=== PATIENT | male | born 1960 | race Caucasian/White ===

== ENCOUNTER → 2016-08-13 | Outpatient (CLI) | payer OTHER ==
[~2016-08-13] MED LIST: ACET-1138 PO; ACET-1256 PO; AMLO-110 PO; AMOX875T PO; ASCA500 PO; ASPEC81 PO; ASPI81TA28 PO; CETI10TA10 PO; CETI10TA84 PO; CYAN100T PO; CZR50 PO; FERR1TAB23 PO; FLUT0.15 NAE; GLC5 PO; GLC500 PO; LOSA1TAB38 PO; MELO7.5T5 PO; METF-384 PO; MULT-506 PO; ONDA8TAB6 PO; OXYC1TAB3 PO; OXYSR10 PO; RANI300T2 PO; RIVA1.5T PO; RXC5 PO; SIMV-151 PO; SIMV40TA4 PO; XRL15 PO
[2016-08-13 15:33] LABS: BASO % 0.2 %; BASO ABS # 0.02 K/uL (0-0.2); COMPLETE YES; EOS % 1.2 %; HEMATOCRIT 39.5 % (42-52); IG% 0.2 %; LYMPH % 19.3 %; LYMPH ABS # 2.01 K/uL (1.2-3.4); MEAN CELL VOLUME 98.3 fL (80-100); MEAN CORPUSCULAR HEMOGLOBIN 33.8 pg (25-34); MEAN CORPUSCULAR HGB CONC 34.4 g/dl (32-36); MONO % 7.6 %; NEUT % 71.5 %; PLATELET COUNT 275 K/uL (130-400); RED BLOOD COUNT 4.02 M/uL (4.7-6.1); WHITE BLOOD COUNT 10.43 K/uL (4.8-10.8)
[2016-08-13 16:11] LABS: ALT/SGPT 30 U/L (12-78); AST/SGOT 14 U/L (15-37); BLOOD UREA NITROGEN 26 mg/dl (7-18); BUN/CREATININE RATIO 23.6 (10-20); CALCIUM 9.3 mg/dl (8.5-10.1); CARBON DIOXIDE 30 mmol/L (21-32); CHLORIDE 107 mmol/L (98-107); CHOLESTEROL 124 mg/dl (0-200); GLUCOSE 94 mg/dl (70-99); POTASSIUM 4.4 mmol/L (3.5-5.1); SODIUM 142 mmol/L (136-145)
[2016-08-13 16:14] LABS: CHOLESTEROL/HDL RATIO 2.3; HDL CHOLESTEROL 55 mg/dl; LDL CHOLESTEROL CALCULATED 49 mg/dl; TRIGLYCERIDES 98 mg/dl (0-150); VERY LOW DENSITY LIPOPROT CALC 20 mg/dl
[2016-08-13 17:20] LABS: RATIO 4.9 mcg/mg (0-30.0)
[2016-08-14 07:42] LABS: ESTIMATED AVERAGE GLUCOSE 146 mg/dl; HA1C FLAG Normal (Normal)
== END | disposition home or self-care (01) ==
LOC: C.LAB 14:54
DX: M25.551 Pain in right hip (principal); E11.9 Type 2 diabetes mellitus without complications; E78.5 Hyperlipidemia, unspecified

== ENCOUNTER 2016-09-11 05:30 | Inpatient (IN) | payer OTHER ==
[2016-08-21 08:24] VITALS: BMI 28.0
--- NOTE | 2016-08-21 09:03 | PAT Medication Instructions ---
Service Date Aug 21, 2016. Current Home Medication List Amlodipine (Norvasc), 5 MG PO QAM Ascorbic Acid (Vitamin C), 1 TAB PO BID Aspirin (Aspirin Ec), 81 MG PO QAM Cetirizine (Zyrtec), 10 MG PO QAM Cyanocobalamin (Vitamin B-12), 100 MCG PO BID Ferrous Sulfate (Iron), 1 TAB PO BID Fluticasone Propionate (Nasal) (Flonase Allergy Relief), 2 SPRAY JULIO UD PRN for PRN Glipizide (Glipizide), 5 MG PO BID Losartan Potassium (Cozaar), 100 MG PO QAM Meloxicam (Mobic), 15 MG PO QPM Metformin HCl (Metformin HCl), 1,000 MG PO BID Multivitamin (Multivitamin), 1 TAB PO QAM Ranitidine Hcl (Zantac), 300 MG PO HS Simvastatin (Simvastatin), 40 MG PO HS Medication Instructions For Your Scheduled Surgery Meloxicam (Mobic), 15 MG PO QPM (per surgeon instructions) - Hold the following medications 48 hours prior to surgery: Metformin HCl (Metformin HCl), 1,000 MG PO BID - Hold the following medications the morning of surgery: Multivitamin (Multivitamin), 1 TAB PO QAM Losartan Potassium (Cozaar), 100 MG PO QAM Glipizide (Glipizide), 5 MG PO BID Ferrous Sulfate (Iron), 1 TAB PO BID Cyanocobalamin (Vitamin B-12), 100 MCG PO BID Cetirizine (Zyrtec), 10 MG PO QAM Ascorbic Acid (Vitamin C), 1 TAB PO BID - Take the following medications the morning of surgery with a sip of water: Amlodipine (Norvasc), 5 MG PO QAM Fluticasone Propionate (Nasal) (Flonase Allergy Relief), 2 SPRAY JULIO UD PRN for PRN Aspirin (Aspirin Ec), 81 MG PO QAM (okay to take per surgeon) - Take the following medications as scheduled the night before surgery: Ranitidine Hcl (Zantac), 300 MG PO HS Simvastatin (Simvastatin), 40 MG PO HS Glipizide (Glipizide), 5 MG PO BID Ferrous Sulfate (Iron), 1 TAB PO BID Cyanocobalamin (Vitamin B-12), 100 MCG PO BID Ascorbic Acid (Vitamin C), 1 TAB PO BID Fluticasone Propionate (Nasal) (Flonase Allergy Relief), 2 SPRAY JULIO UD PRN for PRN If you have any questions please call us at [phone] (Antonia Lam PA-C ) or [phone] or [phone]
--- NOTE | 2016-08-21 09:40 | DIAGNOSTIC IMAGING REPORT ---
CHEST PREADMISSION(PA/LAT) CLINICAL HISTORY: PAT preoperative evaluation COMPARISON STUDY: 05/28/2015 FINDINGS: The bones soft tissues and hemidiaphragms are normal. The cardiomediastinal silhouette is normal. The lungs are clear. The pulmonary vasculature is normal. IMPRESSION: Negative chest. Electronically signed by: Aravind Allen M.D. 08/21/2016 9:39 AM Dictated Date/Time: 08/21/2016 9:39 AM
[2016-08-21 09:57] LABS: URINE APPEARANCE CLEAR (CLEAR); URINE BILIRUBIN NEG (NEG); URINE COLOR DK YELLOW; URINE NITRITE NEG (NEG); URINE SPECIFIC GRAVITY 1.024 (1.000-1.030); UROBILINOGEN NEG (NEG)
[2016-08-21 10:00] LABS: PARTIAL THROMBOPLASTIN RATIO 0.9; PROTHROMBIN TIME (PATIENT) 10.8 SECONDS (9.0-12.0)
[2016-08-21 10:04] LABS: MANUAL MICROSCOPIC REQUIRED? NO; REVIEW REQ? NO
--- NOTE | 2016-09-09 14:16 | HISTORY & PHYSICAL EXAMINATION ---
DATE OF ADMISSION: 09/11/2016 CHIEF COMPLAINT: Right hip pain. HISTORY OF PRESENT ILLNESS: The patient is a 55-year-old gentleman with known osteoarthritis about his right hip. 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 He is having a lot of pain and disability with activities of daily living. He has pain with prolonged weightbearing and standing activities. He has difficulty kneeling, bending, or squatting activities. Due to ongoing pain and disability, he now desires to proceed with right total hip arthroplasty. PAST MEDICAL HISTORY: Brachial plexus injury right upper extremity, type 2 diabetes, hypertension, hyperlipidemia and depression. MEDICATIONS: Cetirizine HCL 10 mg daily, iron 325 mg daily, losartan potassium 100 mg daily, vitamin B12 100 mcg daily, glipizide 5 mg twice daily, metformin HCL 1000 mg q. 12 hours, men's multivitamin daily, ranitidine HCL 300 mg daily, aspirin 81 mg daily, simvastatin 40 mg daily, amlodipine besylate 5 mg daily, Meloxicam 15 mg daily, fluticasone proprionate 1 spray each nostril twice daily, vitamin C capsules daily. ALLERGIES: No known drug allergies. SOCIAL HISTORY AND REVIEW OF SYSTEMS: Noncontributory. PHYSICAL EXAMINATION: GENERAL: Well-nourished, well-developed male who appears his stated age. HEAD, EYES, EARS, NOSE, AND THROAT: Normocephalic, atraumatic. Extraocular movements intact. Oropharynx pink and moist. NECK: Supple without adenopathy. LUNGS: Clear to auscultation bilaterally. HEART: Regular rate and rhythm. ABDOMEN: Soft, nontender, nondistended. EXTREMITIES: Right upper extremity is dysfunctional due to his previous brachial plexus injury. The right hip demonstrates limited range of motion. There is limitation of active and passive internal/external rotation with pain at end range. X-RAYS: X-rays were reviewed. He has moderate to severe osteoarthritis about the right hip with significant narrowing of the joint space. There is osteophyte formation about the femoral head. ASSESSMENT: Right hip degenerative joint disease. PLAN: Risks versus benefits were discussed. Consent was obtained. The patient's primary care physician is Dr. Noland. Will proceed with right total hip arthroplasty upon preoperative workup and medical clearance.
[~2016-09-11] VITALS: Ht 180.3 cm; Wt 93.1 kg
[2016-09-11] VITALS (8 sets, daily range): BP systolic 130–155; BP diastolic 72–87; PULSE 55–79; TEMP 36.3–36.9; O2SAT 94–99; Ht 180.3 cm; Wt 93.1 kg
[~2016-09-11 05:30] MED LIST changes: -ACET-1138 PO; -ACET-1256 PO; -AMLO-110 PO; -AMOX875T PO; -ASCA500 PO; -ASPEC81 PO; -CETI10TA10 PO; -CETI10TA84 PO; -CYAN100T PO; -CZR50 PO; -FERR1TAB23 PO; -FLUT0.15 NAE; -GLC5 PO; -GLC500 PO; +LACTATED RINGER'S 1000ML 1,000 ML IV SCH; -LOSA1TAB38 PO; -METF-384 PO; -MULT-506 PO; -ONDA8TAB6 PO; -OXYC1TAB3 PO; -OXYSR10 PO; -RANI300T2 PO; -RIVA1.5T PO; -RXC5 PO; -SIMV40TA4 PO; -XRL15 PO
[2016-09-11] MEDS ORDERED: ACETAMINOPHEN 500 MG TAB PO SCH (06:00)
[2016-09-11] MEDS ORDERED: FAMOTIDINE 20 MG TAB PO SCH (06:00)
[2016-09-11] MEDS ORDERED: CeleBREX 200 MG CAP PO SCH (06:00)
[2016-09-11] MEDS ORDERED: CEFAZOLIN 2000 MG/60 ML D5W 60 ML IV SCH (06:00)
[2016-09-11] MEDS ORDERED: ROPIVACAINE 5MG/ML 30 ML 150 MG, BUPIVACAINE/EPINEPHR 0.5% MPF 30 ML, KETOROLAC TROMETH... INFIL SCH ×7 (06:00)
[2016-09-11] MEDS ORDERED: LACTATED RINGER'S 1000ML 1,000 ML IV SCH (06:00)
[2016-09-11] MEDS ORDERED: DEXAMETHASONE 4 MG TAB PO SCH (06:00)
[2016-09-11] MEDS ORDERED: LACTATED RINGER'S 1000ML IV SCH (06:00)
[2016-09-11] MEDS ORDERED: GABAPENTIN 300 MG CAP PO SCH (06:00)
[2016-09-11] MEDS ORDERED: LACTATED RINGER'S 500 ML IV SCH (06:00)
[2016-09-11] MEDS ORDERED: METOCLOPRAMIDE HCL 10 MG TAB PO SCH (06:00)
[2016-09-11] MEDS ORDERED: BUPIVACAINE 0.5 % 5 MG/1 ML PF 10ML VIAL ONE (06:39)
--- NOTE | 2016-09-11 06:52 | History & Physical Bridge Note ---
H&P Re-Evaluation Bridge Note: I have examined the patient, reviewed the History & Physical and in the interval since the performance of the History & Physical I have noted the following changes of clinical significance: No changes noted
[2016-09-11] MEDS ORDERED: ORTHO JOINT ANESTHETIC ONE (07:03)
[2016-09-11] MEDS ORDERED: BACITRACIN 50000 UNIT VIAL ONE (07:03)
[2016-09-11] MEDS ORDERED: POVIDONE-IODINE OP SOLN 30 ML BTL ONE (07:03)
[2016-09-11] MEDS ORDERED: MIDAZOLAM HCL 1 MG/ML 2ML VIAL ONE ×2 (07:08→07:11)
[2016-09-11] MEDS ORDERED: FENTANYL CITRATE INJ 50 MCG/1 ML 2 ML VIAL ONE (07:08)
[2016-09-11] MEDS: TRANEXAMIC ACID INJ 1,000 MG in SODIUM CHLORIDE 0.9% 100ML 100 ML IV SCH ×2 (07:16→10:23)
[2016-09-11] MEDS ORDERED: EpHEDrine SULFATE INJ 50 MG/ML AMP IV PRN (07:30)
[2016-09-11] MEDS ORDERED: HYDROmorphone INJ 0.5 MG/0.5 ML SYR IV PRN (07:30)
[2016-09-11] MEDS ORDERED: KETOROLAC TROMETHAMINE 30 MG/ML VIAL IV. PRN (07:30)
[2016-09-11] MEDS ORDERED: ATROPINE SULFATE 0.1 MG/ML 5ML SYR IV PRN (07:30)
[2016-09-11] MEDS ORDERED: ONDANSETRON INJ 2 MG/ML 2 ML VIAL IV PRN ×2 (07:30→08:45)
[2016-09-11] MEDS ORDERED: PHENYLEPHRINE 100MCG/ML 5ML SYR IV PRN (07:30)
[2016-09-11] MEDS ORDERED: PROPOFOL IV EMULSION 10 MG/ML 20 ML VIAL IV ONE (07:58)
[2016-09-11] MEDS ORDERED: TAMSULOSIN HCL 0.4 MG CAP PO PRN (08:45)
[2016-09-11] MEDS ORDERED: BISACODYL 10 MG SUPP PR PRN (08:45)
[2016-09-11] MEDS ORDERED: FLUTICASONE PROPIONATE NA SPR 16 GM BTL NAE PRN (08:45)
[2016-09-11] MEDS ORDERED: ALUMINUM/MAGNESIUM/SIMETH (MAALOX MAX) 30 ML UDC PO PRN (08:45)
[2016-09-11] MEDS ORDERED: DiphenhydrAMINE HCL 50 MG/ML VIAL IV PRN (08:45)
[2016-09-11] MEDS ORDERED: MAGNESIUM HYDROXIDE SUSP 30 ML UDC PO PRN (08:45)
[2016-09-11] MEDS ORDERED: MoRPHine SULFATE 2 MG/ML CARP IV PRN ×2 (08:45→11:15)
--- NOTE | 2016-09-11 09:02 | [facility] Post Operative Brief Note ---
Immediate Operative Summary Operative Date Sep 11, 2016. Pre-Operative Diagnosis Right hip degenerative joint disease Post-Operative Diagnosis Right hip degenerative joint disease Procedure(s) Performed Right total hip arthoplasty Surgeon Dr. Varghese Travel Occupational Therapist Surgeon(s) Arik Newton PA-C Estimated Blood Loss 100cc Findings severe OA Specimens A: Right femoral head Complication(s) None Disposition Recovery Room / PACU
--- NOTE | 2016-09-11 09:22 | OPERATIVE REPORT ---
DATE OF OPERATION: 09/11/2016 PREOPERATIVE DIAGNOSIS: Osteoarthritis left hip. POSTOPERATIVE DIAGNOSIS: Osteoarthritis left hip. PROCEDURE: Left connective total hip arthroplasty. SURGEON: Dr. Varghese. COMPUTER SYSTEMS ADMINISTRATOR: Arik Newton PA-C. ANESTHESIA: Spinal. COMPLICATIONS: None. OPERATION AND FINDINGS: PROCEDURE: Following induction of adequate spinal anesthesia, the patient was placed in right lateral decubitus position and left [place] incision was made. Subcutaneous tissue was sharply dissected. Electrocautery used for hemostasis. The fascia was incised throughout the length of the wound and a lord scissor placed beneath the short external rotators. The pyriformis was tagged with #1 Vicryl. The short external rotators were divided from the posterior aspect of the femur using electrocautery. These were swept posteriorly. A T-capsulotomy incision was made and the hip was dislocated using a combination of flexion, adduction, and internal rotation. Exposure of the femoral neck with old-style Hohmann and a blunt Hohmann was carried out and a femoral rasp was utilized as a guide for making the appropriate level femoral neck cut. This bone fragment was removed and reserved on the back table. Next, attention was turned to the acetabulum where bone hook was used to retract the femur while the offset retractors were placed anterior and posteriorly. A double-angled Hohmann was placed in superior and anterior position exposing the acetabulum nicely. Acetabular labrum as well as posterior capsule elements were removed using a long knife and a long pickup. Fovea centralis was cleared of all soft tissue. Sequential reamings were carried up to a size 54 and decision was made to proceed with impaction of a size 54 trabecular metal cup. This was impacted and held using a single 35 mm bone screw. The acetabular liner was placed with 15 of elevated posterior wall in the superior and posterior position. Next, attention was turned to the femoral portion of the case where a Bovie and pickup was used to further clear short external rotators from their insertion on the femur. Box osteotome was used to gain access to the femoral canal and the T-handled rasp and a rattail rasp were used to further open and lateral the canal. Sequentially raspings were carried up to a size 3 which gave good fit and fill of the proximal femur. A trial reduction was carried out and size 3 with increased offset femoral neck component was chosen as the size to be used. A -5 mm femoral head was impacted into position, +0 head was utilized. The trial reduction was stable in all degrees of rotation with no [id number] impingement. The hip was dislocated. The trial components were removed and the final femoral stem, neck, and femoral head combination were assembled on the back table and impacted into position. Hip was relocated. Range of motion checked once again successful and the wound was irrigated. The pyriformis repaired to the greater trochanter using #1 Vicryl [id number] suture. A Hemovac drain was placed and the fascia was closed using #1 Vicryl, subcutaneous tissue was closed using 0 Dexon, and skin was closed with hillary. Sterile dressing of Adaptic, 4 x 4's, ABDs, and foam tape was applied. Recovery room stable. The patient tolerated the procedure well. Due to the complex nature of the procedure, the entire surgery was performed with the operational assistance of Arik Newton PA-C. The marketing communications assistant, under direct supervision, was involved in the actual performance of all aspects of the surgical procedure including hemostasis, tissue retraction and incision, instrument management, patient positioning, and wound closure. I attest to the content of the Intraoperative Record and any orders documented therein. Any exceptio ns are noted below.
--- NOTE | 2016-09-11 09:35 | Anesthesiology Progress Note ---
Anesthesia Post Op Note Date & Time Sep 11, 2016 at 09:35 Vital Signs Pain Intensity: 0 Vital Signs Past 12 Hours Date Time Temp Pulse Resp B/P Pulse Ox O2 Delivery O2 Flow Rate FiO2 09/11/16 09:26 63 16 97 09/11/16 09:26 62 16 09/11/16 09:25 134/78 09/11/16 09:21 62 13 98 09/11/16 09:21 63 13 09/11/16 09:20 64 16 09/11/16 09:20 64 16 131/74 97 09/11/16 09:15 63 16 115/72 92 09/11/16 09:15 62 16 09/11/16 09:10 62 16 09/11/16 09:10 62 16 135/77 98 09/11/16 09:05 63 13 09/11/16 09:05 65 13 134/81 99 09/11/16 09:00 69 20 09/11/16 09:00 36.8 64 20 130/67 96 Nasal Cannula 2 09/11/16 09:00 65 20 130/67 93 09/11/16 06:16 36.4 67 18 144/87 97 Room Air Notes Mental Status: alert / awake / arousable, participated in evaluation Pt Amnestic to Procedure: Yes Nausea / Vomiting: adequately controlled Pain: adequately controlled Airway Patency, RR, SpO2: stable & adequate BP & HR: stable & adequate Hydration State: stable & adequate Anesthetic Complications: no major complications apparent
--- NOTE | 2016-09-11 09:51 | DIAGNOSTIC IMAGING REPORT ---
SINGLE VIEW PELVIS; SINGLE VIEW RIGHT HIP CLINICAL HISTORY: Postoperative examination. FINDINGS: An AP portable view of the hips and lower pelvis with crosstable lateral portable views of the right hip are obtained. A bipolar right hip arthroplasty is in near-anatomic alignment. A single cortical lag screw transfixes the acetabular cup. No acute fracture is seen. Mild arthritic change is noted in the left hip. Sclerotic change is seen in the sacroiliac joints. There are expected postoperative findings overlying the right hip including skin clips, a surgical drain, subcutaneous gas, and soft tissues swelling. Pelvic phleboliths are noted. There is atherosclerotic calcification of the femoral arteries. IMPRESSION: Expected postoperative findings status post right hip arthroplasty. No acute fracture is seen. Electronically signed by: Himanshu Momin M.D. 09/11/2016 9:49 AM Dictated Date/Time: 09/11/2016 9:47 AM
[2016-09-11] MEDS ORDERED: MoRPHine SULFATE 10 MG/ML CARP/VIAL IV PRN (11:15)
[2016-09-11] MEDS: SODIUM CHLORIDE 0.9% 1000ML 1,000 ML IV SCH ×2 (11:19→18:53)
[2016-09-11] MEDS: INSULIN ASPART 100 UNITS/ML 3 ML PEN SC SCH ×3 (12:47→21:42)
--- NOTE | 2016-09-11 13:30 | Medical Consult ---
Consultation Date of Consultation: Sep 11, 2016. Attending Physician: Armando Varghese M.D. Reason for Consultation: Medical Management History of Present Illness Patient is a 55 y.o.M who presented to [facility] for elective Left connective total hip arthroplasty done by Dr. Varghese on 09.11.16. Hospitalist service was consulted for medication management. Pos-op patient complains of minimal hip pain. He denies any SOB, chest pain, nausea , vomiting or fevers. Patient has DMII. He is not on insulin however states he performs his accuchecks 3 times weekly and blood sugars range from 95-105. Family History Patient reports no known family medical history. Social History Smoking Status: Never Smoker Drug Use: other Marital Status: in relationship Housing Status: lives with significant other Occupation Status: employed Allergies Coded Allergies: Fluorouracil (Verified Allergy, Severe, SEVERE RASH, BLISTERS, PAIN, ) WAS GIVEN FOR TREATMENT OF MULTIPLE SKIN LESIONS. Current Inpatient Medications Current Inpatient Medications Medications (Trade) Dose Ordered Sig/Adan Route Start Time Stop Time Status Last Admin Dose Admin Cefazolin Sodium (Ancef 2000mg/60 ml D5W) 60 ml @ 100 mls/hr PREOP IV 09/11/16 06:00 09/11/16 18:00 09/11/16 07:21 100 MLS/HR Acetaminophen (Tylenol Tab) 1,000 mg PREOP PO 09/11/16 06:00 09/11/16 18:00 09/11/16 06:32 1,000 MG Celecoxib (CeleBREX CAP) 200 mg PREOP PO 09/11/16 06:00 09/11/16 18:00 09/11/16 06:32 200 MG Dexamethasone (Decadron Tab) 8 mg PREOP PO 09/11/16 06:00 09/11/16 18:00 09/11/16 06:31 8 MG Famotidine (Pepcid Tab) 20 mg PREOP PO 09/11/16 06:00 09/11/16 18:00 09/11/16 06:31 20 MG Gabapentin (Neurontin Cap) 600 mg PREOP PO 09/11/16 06:00 09/11/16 18:00 09/11/16 06:31 600 MG Metoclopramide HCl 10 mg 10 mg PREOP PO 09/11/16 06:00 09/11/16 18:00 09/11/16 06:31 10 MG Tranexamic Acid 1000 mg/Sodium Chloride 110 ml @ 660 mls/hr TODAY@06,0630 IV 09/11/16 06:00 09/11/16 18:00 09/11/16 07:16 660 MLS/HR Lactated Ringer's (Lr 1000ml) 1,000 ml @ 15 mls/hr Q24H IV 09/11/16 06:00 09/12/16 05:59 09/11/16 06:40 15 MLS/HR Amlodipine Besylate (Norvasc Tab) 5 mg QAM PO 09/12/16 09:00 10/12/16 08:59 Cetirizine HCl (zyrTEC TAB) 10 mg QAM PO 09/12/16 09:00 10/12/16 08:59 Cyanocobalamin (Vitamin B-12 Tab) 100 mcg BID PO 09/12/16 09:00 10/12/16 08:59 Fluticasone Propionate (Flonase Nasal [place]) 2 sprays DAILY PRN JULIO 09/11/16 08:45 10/11/16 08:44 Glipizide (Glucotrol Tab) 5 mg BIDM PO 09/12/16 08:30 10/12/16 08:29 Losartan Potassium (coZAAR TAB) 100 mg QAM PO 09/12/16 09:00 10/12/16 08:59 Multivitamins (Multivitamin Tab) 1 tab QAM PO 09/12/16 09:00 10/12/16 08:59 Ranitidine HCl (zANTac TAB) 300 mg HS PO 09/11/16 21:00 10/11/16 20:59 Simvastatin (Zocor Tab) 40 mg HS PO 09/11/16 21:00 10/11/16 20:59 Ferrous Sulfate (Feosol Tab) 325 mg BIDM PO 09/11/16 17:45 10/11/16 17:44 Insulin Aspart SLIDING SCALE G... ACHS SC 09/11/16 12:00 10/11/16 11:59 09/11/16 12:47 1 UNITS Sodium Chloride (Nss 1000ml) 1,000 ml @ 100 mls/hr Q10H IV 09/11/16 08:38 09/12/16 08:37 09/11/16 11:19 100 MLS/HR Oxycodone HCl (Roxicodone Immediate Rel Tab) 1 TABLET FOR PAIN RATING... Q4H PRN PO 09/11/16 08:45 09/25/16 08:44 Acetaminophen (Tylenol Tab) 1,000 mg Q8 PO 09/11/16 14:00 10/11/16 13:59 Magnesium Hydroxide (Milk Of Magnesia Susp) 30 ml Q6H PRN PO 09/11/16 08:45 10/11/16 08:44 Bisacodyl (Dulcolax Supp) 10 mg DAILY PRN MA 09/11/16 08:45 10/11/16 08:44 Senna (Senokot Tab) 17.2 mg HS PO 09/11/16 21:00 10/11/16 20:59 Diphenhydramine HCl (Benadryl Inj) 25 mg Q8H PRN IV 09/11/16 08:45 10/11/16 08:44 Al Hydrox/Mg Hydrox/Simethicone (Maalox Max Susp) 15 ml Q4H PRN PO 09/11/16 08:45 10/11/16 08:44 Ondansetron HCl (Zofran Inj) 4 mg Q6H PRN IV 09/11/16 08:45 10/11/16 08:44 Tamsulosin HCl 0.4 mg 0.4 mg QAM PRN PO 09/11/16 08:45 10/11/16 08:44 Cefazolin Sodium/ Dextrose (Ancef Iv/D5 50ml) 60 ml @ 100 mls/hr Q8H IV 09/11/16 16:00 09/12/16 00:35 Aspirin (Ecotrin Tab) 81 mg BID PO 09/11/16 21:00 10/11/16 20:59 Docusate Sodium (coLACE CAP) 100 mg BID PO 09/11/16 21:00 10/11/16 20:59 Morphine Sulfate (MoRPHine SULFATE INJ) 2 mg Q4HWA PRN IV 09/11/16 11:15 09/25/16 11:14 Morphine Sulfate (MoRPHine SULFATE INJ) 4 mg Q4HWA PRN IV 09/11/16 11:15 09/25/16 11:14 Morphine Sulfate (MoRPHine SULFATE INJ) 6 mg Q4HWA PRN IV 09/11/16 11:15 09/25/16 11:14 Review of Systems Constitutional: No chills, No fever Eyes: No worsening of vision ENT: No hearing loss Respiratory: No cough Cardiovascular: No chest pain Abdomen: No constipation, No nausea, No pain Musculoskeletal: No joint pain, No swelling Genitourinary - Male: No hematuria Neurologic: No memory loss Psychiatric: No depression symptoms Endocrine: No fatigue Hematologic / Lymphatic: No abnormal bleeding/bruising Integumentary: No itch, No new/changing skin lesions, No rash Physical Exam Date Time Temp Pulse Resp B/P Pulse Ox O2 Delivery O2 Flow Rate FiO2 09/11/16 12:04 36.5 60 18 136/72 99 Nasal Cannula 2.0 09/11/16 11:02 36.5 59 17 142/76 97 Nasal Cannula 2.0 09/11/16 11:00 Nasal Cannula 2.0 09/11/16 10:52 Nasal Cannula 2.0 09/11/16 10:36 36.9 55 17 130/80 94 Nasal Cannula 2.0 09/11/16 10:05 36.3 60 20 130/76 97 Nasal Cannula 2.0 09/11/16 09:52 63 15 97 09/11/16 09:52 63 15 09/11/16 09:50 119/85 09/11/16 09:47 60 12 09/11/16 09:47 60 12 97 09/11/16 09:46 62 16 09/11/16 09:46 62 16 98 09/11/16 09:45 129/75 09/11/16 09:41 36.9 09/11/16 09:41 61 13 98 09/11/16 09:41 61 13 09/11/16 09:40 133/72 09/11/16 09:36 61 15 98 09/11/16 09:36 61 15 09/11/16 09:35 144/81 09/11/16 09:32 72 22 98 09/11/16 09:32 64 22 09/11/16 09:30 129/72 09/11/16 09:27 61 16 97 09/11/16 09:27 60 16 09/11/16 09:26 63 16 97 09/11/16 09:26 62 16 09/11/16 09:25 134/78 09/11/16 09:21 62 13 98 09/11/16 09:21 63 13 09/11/16 09:20 64 16 09/11/16 09:20 64 16 131/74 97 09/11/16 09:15 63 16 115/72 92 09/11/16 09:15 62 16 09/11/16 09:10 62 16 09/11/16 09:10 62 16 135/77 98 09/11/16 09:05 63 13 09/11/16 09:05 65 13 134/81 99 09/11/16 09:00 69 20 09/11/16 09:00 36.8 64 20 130/67 96 Nasal Cannula 2 09/11/16 09:00 65 20 130/67 93 09/11/16 06:16 36.4 67 18 144/87 97 Room Air General Appearance: WD/WN, no apparent distress Head: normocephalic Eyes: normal inspection ENT: normal ENT inspection Neck: supple Respiratory/Chest: chest non-tender, lungs clear Cardiovascular: regular rate, rhythm, no edema Abdomen/GI: normal bowel sounds, non tender, soft Back: normal inspection Extremities/Musculoskelatal: normal inspection Laboratory Results Last 24 Hours Test 09/11/16 06:27 09/11/16 09:14 09/11/16 12:02 Bedside Glucose 96 mg/dl 159 mg/dl 169 mg/dl Assessment & Plan Patient is a 55 y.o.M who presented to [facility] for elective Left connective total hip arthroplasty done by Dr. Varghese on 09.11.16. Hospitalist service was consulted for medication management. POD#0 s/p Left total hip arthroplasty - pain control - PT/OT - check CBC in am DMII - controlled - SSI + home dose of glipizide - diabetic diet HTN - controlled - continue home dose of losartan and norvasc GERD - continue ranitidine HLD - continue simvastatin Thank you for the consult and we will follow
[2016-09-11] MEDS: ACETAMINOPHEN 500 MG TAB PO SCH ×2 (13:51→21:39)
[2016-09-11] MEDS: OXYCODONE HCL IR 5 MG TAB (IMMEDIATE RELEASE) PO PRN ×3 (13:52→23:41)
[2016-09-11] MEDS: CEFAZOLIN IV 2,000 MG in DEXTROSE 5% 50ML 50 ML IV SCH ×2 (16:13→23:42)
[2016-09-11] MEDS: MoRPHine SULFATE 4 MG/ML 1 ML CARP\\VIAL IV PRN (16:13)
[2016-09-11] MEDS: FERROUS SULFATE 325 MG TAB PO SCH (18:53)
[2016-09-11] MEDS: DOCUSATE SODIUM 100 MG CAP PO SCH (21:35)
[2016-09-11] MEDS: SENNA 8.6 MG TAB PO SCH (21:37)
[2016-09-11] MEDS: ASPIRIN 81 MG ECTAB PO SCH (21:37)
[2016-09-11] MEDS: SIMVASTATIN 40 MG TAB PO SCH (21:39)
[2016-09-11] MEDS: RANITIDINE HCL 150 MG TAB PO SCH (21:40)
[2016-09-12] VITALS (9 sets, daily range): BP systolic 138–180; BP diastolic 76–83; PULSE 63–77; TEMP 36.4–36.7; O2SAT 95–100
[2016-09-12] MEDS: SODIUM CHLORIDE 0.9% 1000ML 1,000 ML IV SCH (04:00)
[2016-09-12] MEDS: OXYCODONE HCL IR 5 MG TAB (IMMEDIATE RELEASE) PO PRN ×4 (05:31→21:17)
[2016-09-12] MEDS: ACETAMINOPHEN 500 MG TAB PO SCH ×3 (05:32→21:12)
[2016-09-12 06:02] LABS: COMPLETE YES; HEMATOCRIT 33.7 % (42-52); IG% 0.4 %; LYMPH % 7.9 %; MEAN CELL VOLUME 98.5 fL (80-100); MEAN CORPUSCULAR HEMOGLOBIN 34.2 pg (25-34); MEAN CORPUSCULAR HGB CONC 34.7 g/dl (32-36); MEAN PLATELET VOLUME 10.3 fL (7.4-10.4); MONO % 9.9 %; NEUT % 81.8 %; PLATELET COUNT 237 K/uL (130-400); RED BLOOD COUNT 3.42 M/uL (4.7-6.1); WHITE BLOOD COUNT 13.86 K/uL (4.8-10.8)
[2016-09-12 06:56] LABS: BUN/CREATININE RATIO 18.7 (10-20); CALCIUM 7.7 mg/dl (8.5-10.1); CREATININE 0.93 mg/dl (0.60-1.40); POTASSIUM 3.8 mmol/L (3.5-5.1)
--- NOTE | 2016-09-12 07:51 | Orthopedic Progress Note ---
Orthopedic Progress Note Date of Service Sep 12, 2016. Subjective Post OP Day: 1 Reports: complaints (general soreness of the right knee and thigh), feeling well , Denies: SOB, calf pain, chest pain, light headedness, nausea / vomiting Objective calves soft nontender, N/V intact, hip located, dressing C/D/I, A&O x3, toes mobile Date Time Temp Pulse Resp B/P Pulse Ox O2 Delivery O2 Flow Rate FiO2 09/12/16 07:43 36.7 63 18 147/78 100 Room Air 09/12/16 04:05 36.6 77 18 149/80 98 Room Air 09/11/16 23:45 Room Air 09/11/16 23:15 36.6 71 16 147/80 97 Room Air 09/11/16 20:12 36.5 79 18 148/84 98 Room Air 09/11/16 15:45 36.5 70 17 155/87 96 Nasal Cannula 2.0 09/11/16 15:40 Room Air 09/11/16 12:04 36.5 60 18 136/72 99 Nasal Cannula 2.0 09/11/16 11:02 36.5 59 17 142/76 97 Nasal Cannula 2.0 09/11/16 11:00 Nasal Cannula 2.0 09/11/16 10:52 Nasal Cannula 2.0 09/11/16 10:36 36.9 55 17 130/80 94 Nasal Cannula 2.0 09/11/16 10:05 36.3 60 20 130/76 97 Nasal Cannula 2.0 09/11/16 09:52 63 15 97 09/11/16 09:52 63 15 09/11/16 09:50 119/85 09/11/16 09:47 60 12 09/11/16 09:47 60 12 97 09/11/16 09:46 62 16 09/11/16 09:46 62 16 98 09/11/16 09:45 129/75 09/11/16 09:41 36.9 09/11/16 09:41 61 13 98 09/11/16 09:41 61 13 09/11/16 09:40 133/72 09/11/16 09:36 61 15 98 09/11/16 09:36 61 15 09/11/16 09:35 144/81 09/11/16 09:32 72 22 98 09/11/16 09:32 64 22 09/11/16 09:30 129/72 09/11/16 09:27 61 16 97 09/11/16 09:27 60 16 09/11/16 09:26 63 16 97 09/11/16 09:26 62 16 09/11/16 09:25 134/78 09/11/16 09:21 62 13 98 09/11/16 09:21 63 13 09/11/16 09:20 64 16 09/11/16 09:20 64 16 131/74 97 09/11/16 09:15 63 16 115/72 92 09/11/16 09:15 62 16 09/11/16 09:10 62 16 09/11/16 09:10 62 16 135/77 98 09/11/16 09:05 63 13 09/11/16 09:05 65 13 134/81 99 09/11/16 09:00 69 20 09/11/16 09:00 36.8 64 20 130/67 96 Nasal Cannula 2 09/11/16 09:00 65 20 130/67 93 Laboratory Results 24 Hours: Test 09/12/16 05:28 White Blood Count 13.86 K/uL Red Blood Count 3.42 M/uL Hemoglobin 11.7 g/dL Hematocrit 33.7 % Mean Corpuscular Volume 98.5 fL Mean Corpuscular Hemoglobin 34.2 pg Mean Corpuscular Hemoglobin Concent 34.7 g/dl Platelet Count 237 K/uL Mean Platelet Volume 10.3 fL Neutrophils (%) (Auto) 81.8 % Lymphocytes (%) (Auto) 7.9 % Monocytes (%) (Auto) 9.9 % Eosinophils (%) (Auto) 0.0 % Basophils (%) (Auto) 0.0 % Neutrophils # (Auto) 11.34 K/uL Lymphocytes # (Auto) 1.10 K/uL Monocytes # (Auto) 1.37 K/uL Eosinophils # (Auto) 0.00 K/uL Basophils # (Auto) 0.00 K/uL Assessment & Plan Assessment: POD 1 s/p Right CHACHO Plan: PT/OT Planning on [facility] upon dc Inhouse Planning Pain Management: Morphine, PO Tylenol, Oxy IR DVT Prophylaxis: TEDs, SCDs, ASA Discharge Planning Discharge Planning: home with home health Pain Management: PO Tylenol, Oxy IR DVT Prophylaxis: TEDs, ASA Therapy: Physical Therapy
--- NOTE | 2016-09-12 08:00 | Discharge Instructions ---
Discharge Instructions Date of Service Sep 12, 2016. Admission Reason for Admission: Right Hip Osteoarthritis Discharge Discharge Diagnosis / Problem: Right Hip Djd Discharge Goals Goal(s): Decrease discomfort, Improve function Activity Recommendations Activity Limitations: per Instructions/Follow-up section Weightbearing Status: Right weightbearing (as tolerated) . Instructions / Follow-Up Instructions / Follow-Up ACTIVITY RECOMMENDATIONS: SELF CARE INSTRUCTIONS AFTER TOTAL HIP REPLACEMENT Until the incision and soft tissues around your hip have healed, there is a possibility that the hip prosthesis could dislocate. A. Observe the following precautions to prevent dislocation: 1. Don't bend your hip greater than 90 degrees. 2. Avoid crossing your legs or ankles while standing or lying. 3. Sit with your feet placed 6 inches apart. 4. When sitting, keep your knees below your hips. Sit on a firm surface, avoid deep, soft chairs and couches. Use an elevated toilet seat in the bathroom. 5. Don't bend over at the waist. Use a long handled shoehorn and a sock aid to help you put on your shoes and socks. A remote sensing scientist can help you picker machine operator objects that are too high or too low to reach. 6. Keep car riding to a minimum for at least one month after surgery. B. Your balance may be shaky for a while. Use crutches or a walker until directed by your doctor. C. Use hand rails when walking on stairs. D. Wear low heeled shoes with non-slip soles. E. Be sure that your floors are free of things that could trip you - throw rugs , electrical cords, small objects. Avoid wet and waxed floors, especially with crutches and canes. F. Try to walk several times a day with rest periods between. G. Continue with all the exercises taught to you in the hospital. Again, make walking a part of your daily routine. SPECIAL CARE INSTRUCTIONS: VERY IMPORTANT TO READ AND REVIEW A. You may still be at risk for phlebitis and blood clots. 1. Wear surgical stockings (SONNY hose) for 2 weeks after surgery to improve circulation and reduce swelling. 2. Take Aspirin 81mg twice daily for 4 weeks or as directed by your doctor. This is your blood thinner. 3. High risk patients may be prescribed a stronger blood thinner if necessary. 4. If you are on Coumadin normally, your family doctor/presidential support specialist should monitor your blood work. Expect a phone call the day of or the day after bloodwork is drawn to adjust your dosage. B. You must take antibiotics before having dental work, bladder, bowel and other surgery. Your doctor will provide you with a permanent card to carry describing precautions. C. Call [facility] if you have a fever, redness or swelling around the incision, cloudy drainage from incision, or sudden increase in pain in your hip, not relieved by your regular pain medication. D. Please call the office at if you have any concerns or questions about your operation or recovery. * YOU MAY SHOWER, NO TUB BATHS UNTIL CLEARED BY YOUR DOCTOR. * WEAR SONNY HOSE 20 HOURS PER DAY FOR 2 WEEKS. * YOU SHOULD USE A WALKER OR CRUTCHES FOR 2-4 WEEKS. THIS WILL HELP PREVENT STRAIN ON YOUR HIP MUSCLE AND ALLOW IT TO HEAL PROPERLY. YOU MAY WEAN TO A CANE TOLERATED. * MOST PATIENTS WILL HAVE HOME NURSING FOR THERAPY. IF YOU DECIDE TO DO OUTPATIENT PHYSICAL THERAPY, PLEASE SCHEDULE THIS 3 TIMES PER WEEK. * Silverlon- This is a large adhesive bandage that contains silver ions. This helps your incision heal by fighting off bacteria and protecting it from the outside environment. You are permitted to shower with this dressing. This will remain on your incision for 7 days and then should be removed. Some visible blood or drainage through the dressing window is normal. If there is significant drainage or leaking noted before the 7 days notify your doctor's office immediately. Once removed, keep incision clean and dry. If there is any drainage or redness noted, please call your surgeon. . FOLLOW UP VISIT: If appointment is not already scheduled: Please call [facility] to make a follow-up appointment for 2 weeks after your surgery at . Current Hospital Diet Patient's current hospital diet: Diabetes Type 2 Diet Discharge Diet Recommended Diet: Diabetes Type 2 Diet Procedures Procedures Performed: Right total hip arthoplasty Pending Studies Studies pending at discharge: no Laboratory Results Hemoglobin A1c Test 08/13/16 15:04 Range/Units Estimated Average Glucose 146 mg/dl Hemoglobin A1c 6.7 H 4.5-5.6 % Lipid Panel Test 08/13/16 15:04 Range/Units Triglycerides Level 98 0-150 mg/dl Cholesterol Level 124 0-200 mg/dl HDL Cholesterol 55 mg/dl Cholesterol/HDL Ratio 2.3 LDL Cholesterol, Calculated 49 mg/dl Medical Emergencies . Who to Call and When: Medical Emergencies: If at any time you feel your situation is an emergency, please call 911 immediately. . Non-Emergent Contact Non-Emergency issues call your: Surgeon Call Non-Emergent contact if: temperature is above 101.5, your pain is not controlled, your pain is worsening, wound has increased drainage, wound has increased redness . "Provider Documentation" section prepared by Arik Newton. VTE Core Measure Inpt VTE Proph given/why not?: Other Anticoagulation, T.E.D. Stockings, SCD's [place] Drug Monitoring Program Search Results: patient reviewed within database, no issues identified
--- NOTE | 2016-09-12 08:25 | Anesthesiology Progress Note ---
Anesthesia Post Op Note Date & Time Sep 12, 2016 at 08:24 Vital Signs Pain Intensity: 2.0 Vital Signs Past 12 Hours Date Time Temp Pulse Resp B/P Pulse Ox O2 Delivery O2 Flow Rate FiO2 09/12/16 08:15 Room Air 09/12/16 07:43 36.7 63 18 147/78 100 Room Air 09/12/16 04:05 36.6 77 18 149/80 98 Room Air 09/11/16 23:45 Room Air 09/11/16 23:15 36.6 71 16 147/80 97 Room Air Notes Mental Status: alert / awake / arousable, participated in evaluation Anesthetic Complications: no major complications apparent
[2016-09-12] MEDS: FERROUS SULFATE 325 MG TAB PO SCH ×2 (08:41→17:56)
[2016-09-12] MEDS: DOCUSATE SODIUM 100 MG CAP PO SCH ×2 (08:42→21:11)
[2016-09-12] MEDS: ASPIRIN 81 MG ECTAB PO SCH ×2 (08:43→21:11)
[2016-09-12] MEDS: MULTIVITAMIN TAB PO SCH (08:43)
[2016-09-12] MEDS: LOSARTAN POTASSIUM 50 MG TAB PO SCH (08:43)
[2016-09-12] MEDS: AMLODIPINE BESYLATE 5 MG TAB PO SCH (08:44)
[2016-09-12] MEDS: CYANOCOBALAMIN 100 MCG TAB (VIT B-12) PO SCH ×2 (08:45→21:10)
[2016-09-12] MEDS: CETIRIZINE HCL 10 MG TAB PO SCH (08:45)
[2016-09-12] MEDS: INSULIN ASPART 100 UNITS/ML 3 ML PEN SC SCH ×4 (08:48→21:10)
[2016-09-12] MEDS ORDERED: DOCUSATE SODIUM 100 MG CAP PO SCH (09:00)
[2016-09-12] MEDS: MoRPHine SULFATE 4 MG/ML 1 ML CARP\\VIAL IV PRN ×3 (12:53→22:12)
--- NOTE | 2016-09-12 16:09 | Hospitalist Progress Note ---
Hospitalist Progress Note Date of Service Sep 12, 2016. Subjective Pt evaluation today including: conversation w/ patient Patient had no acute issues overnight Constitutional: No fever Eyes: No worsening of vision ENT: No hearing loss Respiratory: No cough, No shortness of breath Cardiovascular: No chest pain Abdomen: No constipation, No pain, No vomiting Musculoskeletal: No joint pain Male : No dysuria, No incontinence Neurologic: No memory loss Psychiatric: No depression symptoms Heme: No abnormal bleeding/bruising Endo: No fatigue Skin: No rash Objective Vital Signs Date Time Temp Pulse Resp B/P Pulse Ox O2 Delivery O2 Flow Rate FiO2 09/12/16 15:33 36.7 64 16 173/78 100 Room Air 09/12/16 13:51 69 153/80 09/12/16 12:17 177/82 09/12/16 11:47 36.4 65 17 180/83 95 Room Air 09/12/16 08:15 Room Air 09/12/16 07:43 36.7 63 18 147/78 100 Room Air 09/12/16 04:05 36.6 77 18 149/80 98 Room Air 09/11/16 23:45 Room Air 09/11/16 23:15 36.6 71 16 147/80 97 Room Air 09/11/16 20:12 36.5 79 18 148/84 98 Room Air Physical Exam General Appearance: WD/WN, no apparent distress Eyes: normal inspection ENT: normal ENT inspection Neck: supple, no adenopathy Respiratory/Chest: chest non-tender, lungs clear Cardiovascular: regular rate, rhythm, no edema Abdomen: normal bowel sounds, non tender, soft Extremities: normal range of motion, non-tender Neurologic/Psychiatric: tower switch operator II-XII nml as tested, no motor/sensory deficits, alert, oriented x 3 Skin: normal color, warm/dry, no rash Lymphatic: no adenopathy Laboratory Results Last 24 Hours Test 09/11/16 17:14 09/11/16 21:05 09/12/16 05:28 09/12/16 08:03 Bedside Glucose 196 mg/dl 222 mg/dl 156 mg/dl White Blood Count 13.86 K/uL Red Blood Count 3.42 M/uL Hemoglobin 11.7 g/dL Hematocrit 33.7 % Mean Corpuscular Volume 98.5 fL Mean Corpuscular Hemoglobin 34.2 pg Mean Corpuscular Hemoglobin Concent 34.7 g/dl Platelet Count 237 K/uL Mean Platelet Volume 10.3 fL Neutrophils (%) (Auto) 81.8 % Lymphocytes (%) (Auto) 7.9 % Monocytes (%) (Auto) 9.9 % Eosinophils (%) (Auto) 0.0 % Basophils (%) (Auto) 0.0 % Neutrophils # (Auto) 11.34 K/uL Lymphocytes # (Auto) 1.10 K/uL Monocytes # (Auto) 1.37 K/uL Eosinophils # (Auto) 0.00 K/uL Basophils # (Auto) 0.00 K/uL RDW Standard Deviation 50.3 fL RDW Coefficient of Variation 14.1 % Immature Granulocyte % (Auto) 0.4 % Immature Granulocyte # (Auto) 0.05 K/uL Sodium Level 138 mmol/L Potassium Level 3.8 mmol/L Chloride Level 104 mmol/L Carbon Dioxide Level 24 mmol/L Anion Gap 10.0 mmol/L Blood Urea Nitrogen 17 mg/dl Creatinine 0.93 mg/dl Est Creatinine Clear Calc Drug Dose 102.1 ml/min Estimated GFR () 105.2 Estimated GFR (Non- 90.8 BUN/Creatinine Ratio 18.7 Random Glucose 170 mg/dl Calcium Level 7.7 mg/dl Hepatitis C Antibody Screen NEG Test 09/12/16 12:10 Bedside Glucose 161 mg/dl Assessment and Plan Patient is a 55 y.o.M who presented to [facility] for elective Left connective total hip arthroplasty done by Dr. Varghese on 09.11.16. Hospitalist service was consulted for medication management. POD#1 s/p Left total hip arthroplasty - pain control - PT/OT DMII - controlled - SSI + home dose of glipizide - diabetic diet HTN - controlled - continue home dose of losartan and norvasc GERD - continue ranitidine HLD - continue simvastatin Anticipate d/c in the morning
[2016-09-12] MEDS: SENNA 8.6 MG TAB PO SCH (21:00)
[2016-09-12] MEDS: RANITIDINE HCL 150 MG TAB PO SCH (21:11)
[2016-09-12] MEDS: SIMVASTATIN 40 MG TAB PO SCH (21:11)
[2016-09-13] MEDS: OXYCODONE HCL IR 5 MG TAB (IMMEDIATE RELEASE) PO PRN ×2 (05:35→09:33)
[2016-09-13] MEDS: ACETAMINOPHEN 500 MG TAB PO SCH (05:36)
[2016-09-13 07:04] VITALS: BP 134/76; PULSE 67; TEMP 36.5; O2SAT 98
[2016-09-13] MEDS: INSULIN ASPART 100 UNITS/ML 3 ML PEN SC SCH (07:16)
[2016-09-13] MEDS: CETIRIZINE HCL 10 MG TAB PO SCH (07:34)
[2016-09-13] MEDS: LOSARTAN POTASSIUM 50 MG TAB PO SCH (07:34)
[2016-09-13] MEDS: ASPIRIN 81 MG ECTAB PO SCH (07:34)
[2016-09-13] MEDS: MULTIVITAMIN TAB PO SCH (07:34)
[2016-09-13] MEDS: DOCUSATE SODIUM 100 MG CAP PO SCH (07:34)
[2016-09-13] MEDS: CYANOCOBALAMIN 100 MCG TAB (VIT B-12) PO SCH (07:35)
[2016-09-13] MEDS: FERROUS SULFATE 325 MG TAB PO SCH (07:35)
[2016-09-13] MEDS: AMLODIPINE BESYLATE 5 MG TAB PO SCH (07:35)
--- NOTE | 2016-09-13 09:57 | Orthopedic Progress Note ---
Orthopedic Progress Note Date of Service Sep 13, 2016. Subjective Post OP Day: 2 Reports: feeling well, pain controlled w PO medications, Denies: SOB, calf pain , chest pain, light headedness, nausea / vomiting Objective calves soft nontender, N/V intact, capillary refill less than 2 sec., dressing C /D/I, A&O x3, toes mobile Date Time Temp Pulse Resp B/P Pulse Ox O2 Delivery O2 Flow Rate FiO2 09/13/16 07:13 Room Air 09/13/16 07:04 36.5 67 18 134/76 98 Room Air 09/12/16 23:10 Room Air 09/12/16 23:05 36.6 67 18 138/76 98 CPAP 09/12/16 22:37 158/78 09/12/16 22:19 160/79 09/12/16 16:00 Room Air 09/12/16 15:33 36.7 64 16 173/78 100 Room Air 09/12/16 13:51 69 153/80 09/12/16 12:17 177/82 09/12/16 11:47 36.4 65 17 180/83 95 Room Air Assessment & Plan Assessment: POD 2 s/p Right CHACHO Plan: PT/OT Planning on [facility] upon dc DC today Inhouse Planning Pain Management: Oxycontin, PO Tylenol, Oxy IR DVT Prophylaxis: TEDs, SCDs, ASA Discharge Planning Discharge Planning: home with home health Pain Management: Oxycontin, PO Tylenol, Oxy IR DVT Prophylaxis: TEDs, ASA Therapy: Physical Therapy
[2016-09-13] MEDS ORDERED: ASPEC81 PO (10:01)
[2016-09-13] MEDS ORDERED: ONDA8TAB6 PO (10:01)
[2016-09-13] MEDS ORDERED: ACET-1138 PO (10:01)
[2016-09-13] MEDS ORDERED: RXC5 PO (10:01)
[2016-09-13 10:09] VITALS: BP 134/76; PULSE 67; TEMP 36.5; O2SAT 98
--- NOTE | 2016-09-16 13:40 | DISCHARGE SUMMARY ---
DISCHARGE DIAGNOSIS: Degenerative joint disease, right hip. SECONDARY DIAGNOSES: Brachial plexus injury, right upper extremity; type 2 diabetes mellitus; hypertension; hyperlipidemia and depression. CONSULTS: Carla Holland MD COMPLICATIONS: None. PROCEDURES: Right total hip arthroplasty performed by Dr. Varghese on 09/11/2016. BRIEF HISTORY: As dictated in history and physical. HOSPITAL SUMMARY: The patient was admitted on the above date and had the above-noted surgery performed, which he tolerated well. On the first postoperative day, the patient was having some general soreness of the right knee and thigh. He was otherwise feeling well and had no other complaints. Calves were soft and nontender. Neurovascularly intact. Hip was located. Dressings clean, dry and intact. Toes were mobile. Vital signs were stable and he was afebrile and was started on physical therapy protocol and continued on DVT prophylaxis and pain management. Hemoglobin was 11.7. Plans were for him to go home with home health PT upon discharge. By his second postoperative day, he was feeling well and pain was controlled. Calves were soft, nontender, and neurovascularly intact. Dressings clean, dry and intact. Toes were mobile. Vital signs were stable. He was afebrile. He was progressing with his physical therapy and remaining medically stable and it was felt that he was stable for discharge to home. For further review, please see chart. LAB AND X-RAY DATA: As per chart. DISCHARGE INSTRUCTIONS: The patient was discharged to home in satisfactory condition on 09/13/2016. DIET: Diabetic. ACTIVITY: Weightbearing as tolerated, right lower extremity. Follow CHACHO instruction sheets and special care instructions as noted. Follow up with Dr. Varghese in 2 weeks. The patient is to call for an appointment if one has not been made for you. DISCHARGE MEDICATIONS: Acetaminophen 1000 mg p.o. q. 8 hours for 30 days, aspirin 81 mg p.o. b.i.d., Zofran 8 mg p.o. q. 8 hours p.r.n. nausea, and oxycodone 5-10 mg p.o. q. 4 hours p.r.n. Resume home meds as listed, but stop meloxicam once you are done taking your aspirin tablet twice daily for 30 days, stop the b.i.d. dosing and resume your once daily dosing.
--- NOTE | 2016-09-21 14:46 | EDITING REQUIRED CODING QUERY ---
CODING QUERY Dear Dr. Varghese, To promote full compliance with coding requirements relating to patient care, provider participation is requested in all cases of culinary director uncertainty. Please assist us with the question(s) below: In responding to this query, please exercise your independent professional judgement. The fact that a question is asked does not imply that any particular answer is desired or expected. We appreciate your clarification on this issue. ? Coding Question(s): Contradictory information regarding Procedure - ( ) Right Total Hip Arthroplasty ( ) Left Total Hip Arthroplasty Medical documentation Operative Report DICTATED BY: Armando Varghese M.D. DATE OF OPERATION: 09/11/2016 PREOPERATIVE DIAGNOSIS: Osteoarthritis left hip. POSTOPERATIVE DIAGNOSIS: Osteoarthritis left hip. DISCHARGE SUMMARY: PROCEDURES: Right total hip arthroplasty performed by Dr. Varghese on 09/11/2016. Physician's Response(s): Thank you for your time. YUKI Stokes Principal Diagnosis: "_that condition established after study, to be chiefly responsible for occasioning the admission of the patient to the hospital for care." Co-Existing Principal Diagnosis: "_when two or more diagnoses equally meet the criteria for principal diagnosis as determined by the circumstances of admission, diagnostic work up, and/or therapy provided, and the Alphabetic Index, Tabular List, or another coding guideline does not provide sequencing direction, any one of the diagnoses may be sequenced first." "When the physician has documented what appears to be a current diagnosis in the body of the record, but has not included the diagnosis in the final diagnostic statement, the physician should be asked whether the diagnosis should be added." (Source Coding [facility] 2 QTR90. p3-4)
[2016-12-30] MEDS ORDERED: LOSA1TAB38 PO (08:22)
[2016-12-30] MEDS ORDERED: MULT-506 PO (08:22)
[2016-12-30] MEDS ORDERED: GLC5 PO (08:22)
[2016-12-30] MEDS ORDERED: AMLO-110 PO (08:22)
[2016-12-30] MEDS ORDERED: CETI10TA84 PO (08:22)
[2016-12-30] MEDS ORDERED: FERR1TAB23 PO (08:22)
[2016-12-30] MEDS ORDERED: CYAN100T PO (08:22)
[2016-12-30] MEDS ORDERED: ASCA500 PO (08:22)
[2016-12-30] MEDS ORDERED: RANI300T2 PO (08:22)
[2016-12-30] MEDS ORDERED: GLC500 PO (08:22)
[2016-12-30] MEDS ORDERED: FLUT0.15 NAE (08:22)
[2016-12-30] MEDS ORDERED: ASPI81TA28 PO (16:52)
[2016-12-30] MEDS ORDERED: ACET-1256 PO (16:54)
== END 2016-09-13 10:34 | disposition home health service (06) | DRG 470 ==
LOC: ENRESERVDT → ENRESERVTM → C.ACU 05:30 → C.3E 06:35
PROC: 0SR90JZ Replacement of Right Hip Joint with Synthetic Substitute, Open Approach (ICD-10-PCS; principal; 2016-09-11 07:30)
DX: M16.11 Unilateral primary osteoarthritis, right hip (principal); E78.5 Hyperlipidemia, unspecified; E11.9 Type 2 diabetes mellitus without complications; I10 Essential (primary) hypertension; K21.9 Gastro-esophageal reflux disease without esophagitis; F32.9 Major depressive disorder, single episode, unspecified; Z79.82 Long term (current) use of aspirin; Z79.84 Long term (current) use of oral hypoglycemic drugs; Z79.1 Long term (current) use of non-steroidal anti-inflammatories (NSAID); Z79.51 Long term (current) use of inhaled steroids; Z79.899 Other long term (current) drug therapy

== ENCOUNTER → 2016-09-30 | Outpatient (CLI) | payer OTHER ==
[~2016-09-30] MED LIST changes: +ACET-1138 PO; +ACET-1256 PO; +AMLO-110 PO; +AMOX875T PO; +ASCA500 PO; +ASPEC81 PO; +CETI10TA84 PO; +CYAN100T PO; +FERR1TAB23 PO; +FLUT0.15 NAE; +GLC5 PO; +GLC500 PO; -LACTATED RINGER'S 1000ML 1,000 ML IV SCH; +LOSA1TAB38 PO; -MELO7.5T5 PO; +MULT-506 PO; +ONDA8TAB6 PO; +OXYC1TAB3 PO; +OXYSR10 PO; +RANI300T2 PO; +RIVA1.5T PO; +RXC5 PO; +SIMV40TA4 PO; +XRL15 PO
[2016-09-30 16:41] LABS: BASO % 0.3 %; BASO ABS # 0.03 K/uL (0-0.2); COMPLETE YES; EOS % 1.1 %; HEMATOCRIT 34.7 % (42-52); IG% 0.2 %; LYMPH % 20.8 %; LYMPH ABS # 1.84 K/uL (1.2-3.4); MEAN CELL VOLUME 105.2 fL (80-100); MEAN CORPUSCULAR HEMOGLOBIN 34.5 pg (25-34); MEAN CORPUSCULAR HGB CONC 32.9 g/dl (32-36); MEAN PLATELET VOLUME 9.9 fL (7.4-10.4); MONO % 8.5 %; NEUT % 69.1 %; PLATELET COUNT 396 K/uL (130-400); WHITE BLOOD COUNT 8.83 K/uL (4.8-10.8)
[2016-09-30 16:48] LABS: URINE APPEARANCE CLEAR (CLEAR); URINE BILIRUBIN NEG (NEG); URINE COLOR DK YELLOW; URINE NITRITE NEG (NEG); URINE PH 5.5 (4.5-7.5); URINE SPECIFIC GRAVITY 1.021 (1.000-1.030); UROBILINOGEN NEG (NEG)
[2016-09-30 16:51] LABS: PARTIAL THROMBOPLASTIN RATIO 0.9; PROTHROMBIN TIME (PATIENT) 10.5 SECONDS (9.0-12.0)
[2016-09-30 16:52] LABS: MANUAL MICROSCOPIC REQUIRED? NO; REVIEW REQ? NO
[2016-09-30 17:03] LABS: BLOOD UREA NITROGEN 19 mg/dl (7-18); BUN/CREATININE RATIO 21.3 (10-20); CARBON DIOXIDE 30 mmol/L (21-32); CHLORIDE 105 mmol/L (98-107); CREATININE 0.87 mg/dl (0.60-1.40); GLUCOSE 137 mg/dl (70-99); POTASSIUM 4.4 mmol/L (3.5-5.1); SODIUM 141 mmol/L (136-145)
[2016-10-01 07:41] LABS: ESTIMATED AVERAGE GLUCOSE 120 mg/dl; HA1C FLAG Normal (Normal)
== END | disposition home or self-care (01) ==
LOC: C.LAB 15:43
DX: Z01.812 Encounter for preprocedural laboratory examination (principal)

== ENCOUNTER 2016-11-06 06:04 | Inpatient (IN) | payer OTHER ==
[2016-09-30 14:57] VITALS: BMI 28.0
--- NOTE | 2016-11-05 13:47 | HISTORY & PHYSICAL EXAMINATION ---
DATE OF ADMISSION: 11/06/2016 CHIEF COMPLAINT: Bilateral knee pain. HISTORY OF PRESENT ILLNESS: The patient is a 56-year-old gentleman with known osteoarthritis about his bilateral knees, right worse than left. He has had previous bilateral knee surgery. He recently had a right total hip replacement, approximately 2 months ago, which is doing very well. He has had previous corticosteroid injections into his knee and continues to have pain and disability with activities of daily living and now desires to proceed with right total knee arthroplasty and left knee intraarticular injection. PAST MEDICAL HISTORY: Hypertension, hyperlipidemia, depression, type 2 diabetes, and brachial plexus injury. PAST SURGICAL HISTORY: Right hip as above, bilateral knee surgery as above, ankle surgery, shoulder surgery, and right arm and right hand surgery. MEDICATIONS: Cetirizine HCL 10 mg daily, iron 325 mg daily, losartan potassium 100 mg daily, vitamin B12 at 100 mcg daily, glipizide 5 mg twice daily, metformin HCL 1000 mg q. 12 hours, Centrum Silver men's multivitamin daily, ranitidine HCL 300 mg at bedtime, aspirin 81 mg daily, simvastatin 40 mg daily, amlodipine besylate 5 mg daily, meloxicam 15 mg daily, fluticasone nasal spray 1 spray each nostril twice daily, and vitamin C daily. ALLERGIES: No known drug allergies. SOCIAL HISTORY AND REVIEW OF SYSTEMS: Noncontributory. PHYSICAL EXAMINATION: GENERAL: Well-nourished and well-developed male who appears his stated age. HEENT: Normocephalic and atraumatic. Extraocular movements intact. Oropharynx is pink and moist. NECK: Supple without adenopathy. LUNGS: Clear to auscultation bilaterally. HEART: Regular rate and rhythm. ABDOMEN: Soft, nontender, and nondistended. EXTREMITIES: The upper extremities are within normal limits. The bilateral knees have a neutral alignment. He has surgical scars present on the left knee from the previous surgery. The surgical scars on the right knee are not visible. His range of motion is from 0 to 120 degrees bilaterally. X-RAYS: X-rays were reviewed. The right knee shows tricompartmental DJD with osteophyte formation, both medial and laterally. The left knee also shows tricompartmental DJD to a lesser extent in the right knee. The left knee has tibiofemoral interference screws in place as well as a screw horizontally through the patella. ASSESSMENT: Bilateral knee degenerative joint disease. PLAN: Risks versus benefits were discussed. Consent was obtained. The patient's primary care physician is Dr. David Noland. We will proceed with right total knee arthroplasty and left knee intraarticular injection upon preoperative workup and medical clearance. AUGIE
[~2016-11-06] VITALS: Ht 180.3 cm; Wt 93.2 kg
[2016-11-06] VITALS (9 sets, daily range): BP systolic 116–156; BP diastolic 70–95; PULSE 58–90; TEMP 36.4–36.8; O2SAT 94–99; Ht 180.3 cm; Wt 93.2 kg
[~2016-11-06 06:04] MED LIST changes: -ACET-1256 PO; +ACETAMINOPHEN 500 MG TAB PO SCH; -AMLO-110 PO; -AMOX875T PO; -ASCA500 PO; -ASPI81TA28 PO; +CEFAZOLIN 2000 MG/60 ML D5W 60 ML IV SCH; -CETI10TA84 PO; -CYAN100T PO; +CeleBREX 200 MG CAP PO SCH; +DEXAMETHASONE 4 MG TAB PO SCH; +FAMOTIDINE 20 MG TAB PO SCH; -FERR1TAB23 PO; -FLUT0.15 NAE; +GABAPENTIN 300 MG CAP PO SCH; -GLC5 PO; -GLC500 PO; +LACTATED RINGER'S 1000ML 1,000 ML IV SCH; +LACTATED RINGER'S 1000ML 500 ML IV ONE; +LACTATED RINGER'S 1000ML IV SCH; -LOSA1TAB38 PO; +METOCLOPRAMIDE HCL 10 MG TAB PO SCH; -MULT-506 PO; -OXYC1TAB3 PO; -OXYSR10 PO; -RANI300T2 PO; -RIVA1.5T PO; +ROPIVACAINE 5MG/ML 30 ML 150 MG, BUPIVACAINE/EPINEPHR 0.5% MPF 30 ML, KETOROLAC TROMETH... INFIL SCH; -SIMV40TA4 PO; -XRL15 PO
[2016-11-06] MEDS ORDERED: BUPIVACAINE 0.25% 30 ML VIAL ONE (06:48)
[2016-11-06] MEDS ORDERED: BUPIVACAINE 0.5 % 5 MG/1 ML PF 10ML VIAL ONE (06:48)
[2016-11-06] MEDS: TRANEXAMIC ACID INJ 1,000 MG in SODIUM CHLORIDE 0.9% 100ML 100 ML IV SCH ×2 (07:13→12:04)
[2016-11-06] MEDS ORDERED: MIDAZOLAM HCL 1 MG/ML 2ML VIAL ONE (07:26)
[2016-11-06] MEDS ORDERED: BACITRACIN 50000 UNIT VIAL ONE (08:01)
[2016-11-06] MEDS ORDERED: ORTHO JOINT ANESTHETIC ONE (08:01)
[2016-11-06] MEDS ORDERED: POVIDONE-IODINE OP SOLN 30 ML BTL ONE (08:01)
[2016-11-06] MEDS ORDERED: BUPIVACAINE 0.5 % 5 MG/1 ML MPF 30ML VIAL ONE (08:02)
[2016-11-06] MEDS ORDERED: METHYLPREDNISOLONE ACETATE 80 MG/ML VIAL ONE (08:02)
[2016-11-06] MEDS ORDERED: KETOROLAC TROMETHAMINE 30 MG/ML VIAL IV. PRN (08:30)
[2016-11-06] MEDS ORDERED: PHENYLEPHRINE 100MCG/ML 5ML SYR IV PRN (08:30)
[2016-11-06] MEDS ORDERED: HYDROmorphone INJ 2 MG/ML SYR/VIAL IV PRN (08:30)
[2016-11-06] MEDS ORDERED: EpHEDrine SULFATE INJ 50 MG/ML AMP IV PRN (08:30)
[2016-11-06] MEDS ORDERED: ATROPINE SULFATE 0.1 MG/ML 5ML SYR IV PRN (08:30)
[2016-11-06] MEDS ORDERED: ONDANSETRON INJ 2 MG/ML 2 ML VIAL IV PRN ×2 (08:30→09:45)
[2016-11-06] MEDS ORDERED: PROPOFOL IV EMULSION 10 MG/ML 20 ML VIAL IV ONE (08:38)
[2016-11-06] MEDS ORDERED: LIDOCAINE HCL 2% 2 ML VIAL (20MG/ML) ONE (08:38)
--- NOTE | 2016-11-06 09:10 | [facility] Post Operative Brief Note ---
Immediate Operative Summary Operative Date Nov 06, 2016. Pre-Operative Diagnosis Bilateral knee degenerative joint disease Post-Operative Diagnosis Same as preop Procedure(s) Performed Right Total Knee Arthroplasty; Left Knee intra-articular Injection Surgeon Dr. Varghese Mine Safety Director Surgeon(s) Filippo Newton PA-C Estimated Blood Loss 10 cc Findings OA knees Specimens A: right knee bone and tissue Complication(s) None Disposition Recovery Room / PACU
[2016-11-06] MEDS ORDERED: FLUTICASONE PROPIONATE NA SPR 16 GM BTL NAE PRN (09:45)
[2016-11-06] MEDS ORDERED: MAGNESIUM HYDROXIDE SUSP 30 ML UDC PO PRN (09:45)
[2016-11-06] MEDS ORDERED: BISACODYL 10 MG SUPP PR PRN (09:45)
[2016-11-06] MEDS ORDERED: MoRPHine SULFATE 2 MG/ML CARP IV PRN (09:45)
[2016-11-06] MEDS ORDERED: ALUMINUM/MAGNESIUM/SIMETH (MAALOX MAX) 30 ML UDC PO PRN (09:45)
--- NOTE | 2016-11-06 10:08 | DIAGNOSTIC IMAGING REPORT ---
TWO VIEWS RIGHT KNEE CLINICAL HISTORY: Postoperative examination. FINDINGS: AP and crosstable lateral portable views of the right knee are obtained. A right knee arthroplasty is in near anatomic alignment. There has been undersurface remodeling of the patella. No acute fracture is seen. There are expected postoperative changes around the knee including skin clips, a surgical drain, soft tissue edema, and subcutaneous gas. IMPRESSION: Expected postoperative changes status post right knee arthroplasty. No acute fracture is seen. Electronically signed by: Himanshu Momin M.D. 11/06/2016 10:06 AM Dictated Date/Time: 11/06/2016 10:06 AM
[2016-11-06] MEDS: SODIUM CHLORIDE 0.9% 1000ML 1,000 ML IV SCH ×2 (10:40→19:22)
--- NOTE | 2016-11-06 11:04 | Anesthesiology Progress Note ---
Anesthesia Post Op Note Date & Time Nov 06, 2016 at 11:04 Vital Signs Pain Intensity: 0 Vital Signs Past 12 Hours Date Time Temp Pulse Resp B/P (MAP) Pulse Ox O2 Delivery O2 Flow Rate FiO2 11/06/16 10:23 63 21 100 11/06/16 10:23 64 21 11/06/16 10:22 125/73 11/06/16 10:18 62 14 11/06/16 10:18 62 14 100 11/06/16 10:17 115/72 11/06/16 10:13 63 21 99 11/06/16 10:13 64 21 11/06/16 10:12 115/74 11/06/16 10:08 65 20 11/06/16 10:08 65 20 100 11/06/16 10:07 36.7 106/74 11/06/16 10:03 59 20 100 11/06/16 10:03 59 20 11/06/16 10:02 123/67 11/06/16 09:58 66 20 11/06/16 09:58 66 20 100 11/06/16 09:57 124/70 11/06/16 09:53 60 16 11/06/16 09:53 62 16 100 11/06/16 09:52 122/69 11/06/16 09:50 114/69 11/06/16 09:48 62 18 11/06/16 09:48 63 18 100 11/06/16 09:38 36.3 65 16 135/69 100 Mask 10 11/06/16 06:35 36.6 65 20 156/95 97 Room Air Notes Mental Status: alert / awake / arousable, participated in evaluation Pt Amnestic to Procedure: Yes Nausea / Vomiting: adequately controlled Pain: adequately controlled Airway Patency, RR, SpO2: stable & adequate BP & HR: stable & adequate Hydration State: stable & adequate Anesthetic Complications: no major complications apparent
--- NOTE | 2016-11-06 11:10 | OPERATIVE REPORT ---
DATE OF OPERATION: 11/06/2016 PREOPERATIVE DIAGNOSIS: Bilateral degenerative arthritis of the knees. POSTOPERATIVE DIAGNOSIS: Bilateral degenerative arthritis of the knees. PROCEDURE: Left knee intra-articular injection and right total knee arthroplasty. SURGEON: Dr. Armando Varghese. [facility] DIRECTOR: RANJAN Bui ANESTHESIA: Spinal. COMPLICATIONS: None. IMPLANTS USED: Femoral size 4, tibia size 4, tibial poly 13, and patella size 39. DESCRIPTION OF PROCEDURE: First, the patient's left leg was prepped with Betadine and an injection of 2 mL of Depo-Medrol and 4 mL of Marcaine was injected through a lateral approach. Following induction of spinal anesthesia, the patient's right leg was prepped and draped in the usual sterile manner. Limb was exsanguinated with an Esmarch bandage and tourniquet was inflated to 350 mmHg. A longitudinal incision was made anteriorly. Subcutaneous tissue was sharply dissected. Electrocautery was used for hemostasis. Prepatellar bursa was incised and median parapatellar incision was performed. Patella was everted and the knee was flexed. Fat pad was removed to aid in visualization and the anterior and posterior cruciate ligaments were removed. The medial face of the tibia was cleared of soft tissue first with a Bovie and a Churchill elevator. This tissue was retracted posteriorly using a blunt Hohmann. A Cabrera retractor was used to expose the synovium above on the anterior aspect of the femur and this was removed down to bone. The PSI guide was placed on the distal femur and two pins were placed anteriorly and kept in position and two additional pins were placed distally and removed. The distal femoral cutting block was placed in position and the distal femoral cut was used in the +0 setting. Next, the cutting block was removed and the femoral 4 block was placed in the distal end of the femur. Care was taken to ensure appropriate external rotation and feeler gauge was used to ensure no notching would occur. The femoral block was centered on the distal femur and in the medial and lateral direction and was fixed using two bone screws. The gold pins were then removed. The oscillating saw was used to create the bone cuts and the distal femoral cutting block was removed and the reciprocating saw was used to further trim the femoral cuts as well as a deep in the area for the trochlear groove. Next, posterior condyle remnants were removed. Following this, a meniscal clamp and knife were utilized to remove the anterior portion of both medial and lateral meniscus. The proximal tibia PSI guide was placed into position and the proximal tibial cutting guide was screwed into position. The extra medullary alignment guide was utilized to ensure appropriate alignment. The proximal tibia was cut and the proximal tibial cutting block was removed and this bone fragment was removed. The appropriate guide was used to perform the notch cut on the distal femur and a lamina prosthetics lab technician and a cochlear knife were utilized to finish both medial and lateral meniscectomies to remove any remnants of the posterior or anterior cruciate ligaments. Following this, the distal femoral component was impacted into position and blunt Fran was used to sublux the tibia anteriorly. The proximal tibia was sized and a 4 tibial tray was chosen as the size to be used. This was put into position and appropriate external rotation and a double check with extramedullary alignment guide was performed. The canal for the tibial stem was prepared first with a 17 mm drill and then the punch and a mallet and the trial tibial poly was placed. A 13 was chosen the size to be used. It was brought to extension and the patella was prepared with the patellar reamer. A 39 component was chosen the size to be used. The trial component was placed and knee was taken through a full range of motion and there was found to be no lateral subluxation of the tibia. No lateral release was required. The trials were all removed. The final components were obtained and assembled. Cement was mixed. The knee was thoroughly irrigated and the ortho mix was injected about the knee joint. The final components were cemented into position. After thoroughly suctioning and drying the bone ends, all excess cement was removed. The knee was held in extension while the cement hardened. The wound was irrigated and closed over a Hemovac drain. #1 Vicryl was used to close the extensor mechanism. Subcutaneous tissues closed using 0 Dexon. Skin was closed with hillary. Sterile dressing of Adaptic, 4 x 4's, sterile Webril, and Morris was applied. The patient tolerated the procedure well. Due to the complex nature of the procedure, the entire surgery was performed with the operational assistance of RANJAN Bui. The marketing assistant retail division, under direct supervision, was involved in the actual performance of all aspects of the surgical procedure including hemostasis, tissue retraction and incision, instrument management, patient positioning, and wound closure. DISPOSITION: Recovery room stable. I attest to the content of the Intraoperative Record and any orders documented therein. Any exception s are noted below.
[2016-11-06] MEDS ORDERED: DEXTROSE 50% 50 ML SYR IV PRN (11:15)
[2016-11-06] MEDS ORDERED: GLUCOSE 40% GEL 15 GM TUBE PO PRN (11:15)
[2016-11-06] MEDS ORDERED: MoRPHine SULFATE 10 MG/ML CARP/VIAL IV PRN (11:15)
[2016-11-06] MEDS ORDERED: GLUCAGON FOR INJ 1 MG VIAL SQ PRN (11:15)
[2016-11-06] MEDS ORDERED: GLUCOSE 10 TABS/TUBE PO PRN (11:15)
[2016-11-06] MEDS ORDERED: HydrALAZINE HCL 20 MG/ML VIAL IV. PRN (13:15)
[2016-11-06] MEDS ORDERED: ONDANSETRON INJ 2 MG/ML 2 ML VIAL IV ONE (13:15)
[2016-11-06] MEDS: FERROUS GLUCONATE 324 MG TAB PO SCH ×2 (13:23→17:51)
[2016-11-06] MEDS: ACETAMINOPHEN 500 MG TAB PO SCH ×2 (13:24→21:32)
[2016-11-06 13:27] LABS: COMPLETE YES; HEMATOCRIT 37.7 % (42-52); IG% 0.1 %; LYMPH ABS # 0.71 K/uL (1.2-3.4); MEAN CELL VOLUME 101.9 fL (80-100); MEAN CORPUSCULAR HEMOGLOBIN 34.3 pg (25-34); MEAN CORPUSCULAR HGB CONC 33.7 g/dl (32-36); MEAN PLATELET VOLUME 9.9 fL (7.4-10.4); MONO % 0.3 %; NEUT % 91.6 %; PLATELET COUNT 277 K/uL (130-400); WHITE BLOOD COUNT 8.83 K/uL (4.8-10.8)
[2016-11-06] MEDS: INSULIN ASPART 100 UNITS/ML 3 ML PEN SC SCH ×3 (13:32→21:21)
--- NOTE | 2016-11-06 13:43 | Medical Consult ---
Consultation Date of Consultation: Nov 06, 2016. Attending Physician: Armando Varghese M.D. Reason for Consultation: Medical management History of Present Illness This is a 56 y/o male with a history of iron deficiency anemia, DM II, HLD, HTN , and h/o TIA who presents s/p right TKA and left knee intraarticular injection with Dr. Varghese on 11/06 for medical management. The patient reports feeling well overall postoperatively but he does complain of some mild nausea and dull pain in his lower abdomen. He rates his pain as 4/10 in severity and states that it feels as if he needs to have a bowel movement. He complains of numbness in his lower extremities and denies any knee pain currently. The patient was able to eat lunch without any worsening nausea or abdominal pain. The patient has not yet voided or passed gas. The patient denies fevers, chills , sweats, chest pain, palpitations, claudication, cough, wheezing, shortness of breath, vomiting, dysuria, hematuria, urinary retention, paralysis, weakness. Past Medical/Surgical History HORTENSIA DM II HLD HTN h/o TIA h/o depression Family History Patient reports no known family medical history. Pt does not know his biological family, unaware of family history Social History Smoking Status: Never Smoker Smokeless Tobacco Use: No Alcohol Use: none Drug Use: none, other (history of cocaine and methamphetamine use) Marital Status: single Housing Status: lives alone Occupation Status: disabled Allergies Coded Allergies: Fluorouracil (Verified Allergy, Severe, SEVERE RASH, BLISTERS, PAIN, ) WAS GIVEN FOR TREATMENT OF MULTIPLE SKIN LESIONS. Current Inpatient Medications Current Inpatient Medications Medications (Trade) Dose Ordered Sig/Adan Route Start Time Stop Time Status Last Admin Dose Admin Lactated Ringer's 1,000 ml @ 60 mls/hr [id number] IV 11/06/16 06:00 11/06/16 22:39 Cefazolin Sodium 60 ml @ 100 mls/hr PREOP IV 11/06/16 06:00 11/06/16 18:00 11/06/16 08:13 100 MLS/HR Acetaminophen (Tylenol Tab) 1,000 mg PREOP PO 11/06/16 06:00 11/06/16 16:00 11/06/16 07:10 1,000 MG Celecoxib (CeleBREX CAP) 200 mg PREOP PO 11/06/16 06:00 11/06/16 18:00 11/06/16 07:13 200 MG Dexamethasone (Decadron Tab) 8 mg PREOP PO 11/06/16 06:00 11/06/16 18:00 11/06/16 07:10 8 MG Famotidine (Pepcid Tab) 20 mg PREOP PO 11/06/16 06:00 11/06/16 18:00 11/06/16 07:14 20 MG Metoclopramide HCl (Reglan Tab) 10 mg PREOP PO 11/06/16 06:00 11/06/16 18:00 11/06/16 07:11 10 MG Tranexamic Acid 1000 mg/Sodium Chloride 110 ml @ 660 mls/hr TODAY@06 IV 11/06/16 06:00 11/06/16 18:00 11/06/16 07:13 660 MLS/HR Ropivacaine 150 mg/Bupivacaine HCl/Epinephrine Bitart 30 ml/ Ketorolac Tromethamine 30 mg/Dexamethasone Sodium Phosphate 4 mg/Ketamine HCl 10 mg/Clonidine 100 mcg/Sodium Chloride 30 ml/ Empty Bag 93.2 ml @ 0 mls/hr TODAY@06 INFIL 11/06/16 06:00 11/06/16 14:00 11/06/16 09:00 1 MLS/HR Lactated Ringer's 1,000 ml @ 15 mls/hr Q24H IV 11/06/16 06:00 11/07/16 05:59 Ondansetron HCl (Zofran Inj) 4 mg ONE PRN IV 11/06/16 08:30 11/06/16 14:30 Atropine Sulfate (Atropine Sulfate 0.1MG/Ml Inj) 0.5 mg Q1M PRN IV 11/06/16 08:30 11/06/16 14:30 Ephedrine Sulfate (EpHEDrine SULFATE INJ) 5 mg Q5M PRN IV 11/06/16 08:30 11/06/16 14:30 Ketorolac Tromethamine (Toradol Inj) 30 mg ONE PRN IV. 11/06/16 08:30 11/06/16 14:30 Hydromorphone HCl (Dilaudid Inj) 0.25 mg Q5M PRN IV 11/06/16 08:30 11/06/16 14:30 Phenylephrine HCl (Luis M-Synephrine 500MCG/5ML Syr) 100 mcg Q5M PRN IV 11/06/16 08:30 11/06/16 14:30 Amlodipine Besylate (Norvasc Tab) 5 mg QAM PO 11/07/16 09:00 12/07/16 08:59 Cetirizine HCl (zyrTEC TAB) 10 mg QAM PO 11/07/16 09:00 12/07/16 08:59 Cyanocobalamin (Vitamin B-12 Tab) 100 mcg BID PO 11/06/16 21:00 12/06/16 20:59 Fluticasone Propionate (Flonase Nasal [place]) 2 sprays UD PRN JULIO 11/06/16 09:45 12/06/16 09:44 Losartan Potassium (coZAAR TAB) 100 mg QAM PO 11/07/16 09:00 12/07/16 08:59 Future Hold Multivitamins (Multivitamin Tab) 1 tab QAM PO 11/07/16 09:00 12/07/16 08:59 Ranitidine HCl (zANTac TAB) 300 mg HS PO 11/06/16 21:00 12/06/16 20:59 Simvastatin (Zocor Tab) 40 mg HS PO 11/06/16 21:00 12/06/16 20:59 Insulin Aspart (novoLOG ASPART) SLIDING SCALE G... ACHS SC 11/06/16 12:00 12/06/16 11:59 Morphine Sulfate (MoRPHine SULFATE INJ) 2 mg Q4HWA PRN IV 11/06/16 09:45 11/20/16 09:44 Sodium Chloride 1,000 ml @ 100 mls/hr Q10H IV 11/06/16 09:42 11/07/16 09:41 11/06/16 10:40 100 MLS/HR Cefazolin Sodium 2000 mg/Dextrose 60 ml @ 100 mls/hr Q8H IV 11/06/16 16:00 11/07/16 00:35 Oxycodone HCl (Roxicodone Immediate Rel Tab) 1 TABLET FOR PAIN RATING... Q4H PRN PO 11/06/16 09:45 11/20/16 09:44 Oxycodone HCl (Oxycontin Tab) 10 mg Q12 PO 11/06/16 21:00 11/20/16 20:59 Acetaminophen (Tylenol Tab) 1,000 mg Q8H PO 11/06/16 14:00 12/06/16 09:44 Magnesium Hydroxide (Milk Of Magnesia Susp) 30 ml Q6H PRN PO 11/06/16 09:45 12/06/16 09:44 Bisacodyl (Dulcolax Supp) 10 mg DAILY PRN CA 11/06/16 09:45 12/06/16 09:44 Senna (Senokot Tab) 17.2 mg HS PO 11/06/16 21:00 12/06/16 20:59 Docusate Sodium (coLACE CAP) 100 mg BID PO 11/06/16 21:00 12/06/16 20:59 Al Hydrox/Mg Hydrox/Simethicone (Maalox Max Susp) 15 ml Q4H PRN PO 11/06/16 09:45 12/06/16 09:44 Ondansetron HCl (Zofran Inj) 4 mg Q6H PRN IV 11/06/16 09:45 12/06/16 09:44 Ferrous Gluconate (Ferrous Gluconate Tab) 324 mg TIDM PO 11/06/16 12:30 12/06/16 12:29 Aspirin (Ecotrin Tab) 81 mg BID PO 11/06/16 21:00 12/06/16 20:59 Glucose (Glucose 40% Gel) 15-30 GRAMS 15 GRAMS... UD PRN PO 11/06/16 11:15 12/06/16 11:14 Glucose (Glucose Chew Tab) 4-8 Tablets 4 Tabl... UD PRN PO 11/06/16 11:15 12/06/16 11:14 Dextrose (Dextrose 50% 50ML Syringe) 25-50ML OF 50% DW IV FOR... UD PRN IV 11/06/16 11:15 12/06/16 11:14 Glucagon (Glucagon Inj) 1 mg UD PRN SQ 11/06/16 11:15 12/06/16 11:14 Morphine Sulfate (MoRPHine SULFATE INJ) 4 mg Q4HWA PRN IV 11/06/16 11:15 11/20/16 11:14 Morphine Sulfate (MoRPHine SULFATE INJ) 6 mg Q4HWA PRN IV 11/06/16 11:15 11/20/16 11:14 Hydralazine HCl (HydrALAZINE INJ) 10 mg Q6H PRN IV. 11/06/16 13:15 12/06/16 13:14 Review of Systems See HPI for pertinent positives and negatives. All other systems reviewed and negative. Physical Exam Date Time Temp Pulse Resp B/P (MAP) Pulse Ox O2 Delivery O2 Flow Rate FiO2 11/06/16 12:39 68 16 117/71 (86) 99 2.0 11/06/16 11:40 36.6 69 18 116/74 (88) 98 Nasal Cannula 2.0 11/06/16 11:10 36.5 62 16 125/73 (90) 97 2.0 11/06/16 10:23 63 21 100 11/06/16 10:23 64 21 11/06/16 10:22 125/73 11/06/16 10:18 62 14 11/06/16 10:18 62 14 100 11/06/16 10:17 115/72 11/06/16 10:13 63 21 99 11/06/16 10:13 64 21 11/06/16 10:12 115/74 11/06/16 10:08 65 20 11/06/16 10:08 65 20 100 11/06/16 10:07 36.7 106/74 11/06/16 10:03 59 20 100 11/06/16 10:03 59 20 11/06/16 10:02 123/67 11/06/16 09:58 66 20 11/06/16 09:58 66 20 100 11/06/16 09:57 124/70 11/06/16 09:53 60 16 11/06/16 09:53 62 16 100 11/06/16 09:52 122/69 11/06/16 09:50 114/69 11/06/16 09:48 62 18 11/06/16 09:48 63 18 100 11/06/16 09:38 36.3 65 16 135/69 100 Mask 10 11/06/16 06:35 36.6 65 20 156/95 97 Room Air General appearance: Well-developed, well-nourished, no apparent distress Head: Normocephalic, atraumatic Eyes: Normal inspection, PERRL, EOMI ENT: Normal ENT inspection, hearing grossly normal, pharynx normal Neck: Supple, no JVD, trachea midline Respiratory/Chest: Lungs clear to auscultation, normal breath sounds, no respiratory distress Cardiovascular: Regular rate & rhythm, no gallop, no murmur Abdomen/GI: +Mild distention in lower abdomen. Lower abdomen TTP. Normal bowel sounds, non-tender, soft Extremities/Musculoskeletal: +RLE wrapped in tai bandage. Normal inspection, no calf tenderness, no pedal edema Neurological/Psych: Alert, normal mood/affect, oriented x 3 Skin: Normal color, warm/dry, no rash Laboratory Results Last 24 Hours Test 11/06/16 06:23 11/06/16 09:45 11/06/16 12:26 11/06/16 13:19 Bedside Glucose 91 mg/dl 99 mg/dl 197 mg/dl Assessment & Plan 56 y/o male with a history of iron deficiency anemia, DM II, HLD, HTN, and h/o TIA who presents s/p right TKA and left knee intraarticular injection with Dr. Varghese on 11/06 for medical management. -Pain management, DVT prophylaxis, and PT/OT as per primary team -POD #0 Abdominal pain/distention, nausea -Zofran 4 mg IV x 1 now -Bowel regimen already on board per ortho -Check bladder scan, ?bladder distention. Straight cath prn if over 300 cc -Continue to monitor Iron deficiency anemia--stable. Baseline Hgb 12-13 -Hgb stable at 12.7 on 11/06 -Continue iron supplementation Diabetes mellitus type 2--last HgbA1c checked on 09/30/16 was 5.8 -Hold glipizide and metformin -Insulin sliding scale -Check BSGs q ac and qhs HLD -Continue simvastatin 40 mg PO qd HTN--stable -Hold losartan for now until renal function checked/stable -Continue amlodipine 5 mg PO qd -Cover with hydralazine 10 mg IV q6h prn SBP >180 Code Status -Level I, FULL RESUSCITATION STATUS Thank you for this consultation. We will continue to follow. Assessment and Plan Attending Addendum: I have physically seen and examined this patient, directed their medical care, supervised the Physician Shingles Roofer's activity, and agree with the H&P as noted above, with the following changes: NONE.
[2016-11-06 13:53] LABS: BUN/CREATININE RATIO 16.6 (10-20); CALCIUM 8.9 mg/dl (8.5-10.1); CREATININE 0.81 mg/dl (0.60-1.40); POTASSIUM 4.3 mmol/L (3.5-5.1)
[2016-11-06] MEDS: CEFAZOLIN IV 2,000 MG in DEXTROSE 5% 50ML 50 ML IV SCH ×2 (16:26→23:21)
[2016-11-06] MEDS: OXYCODONE HCL IR 5 MG TAB (IMMEDIATE RELEASE) PO PRN ×2 (16:27→21:33)
[2016-11-06] MEDS: MoRPHine SULFATE 4 MG/ML 1 ML CARP\\VIAL IV PRN ×2 (17:51→23:27)
[2016-11-06] MEDS: RANITIDINE HCL 150 MG TAB PO SCH (21:32)
[2016-11-06] MEDS: CYANOCOBALAMIN 100 MCG TAB (VIT B-12) PO SCH (21:33)
[2016-11-06] MEDS: OXYCODONE HCL 10 MG TABCR (OXYCONTIN) PO SCH (21:33)
[2016-11-06] MEDS: SENNA 8.6 MG TAB PO SCH (21:33)
[2016-11-06] MEDS: SIMVASTATIN 40 MG TAB PO SCH (21:34)
[2016-11-06] MEDS: ASPIRIN 81 MG ECTAB PO SCH (21:34)
[2016-11-06] MEDS: DOCUSATE SODIUM 100 MG CAP PO SCH (21:34)
[2016-11-07] MEDS: OXYCODONE HCL IR 5 MG TAB (IMMEDIATE RELEASE) PO PRN ×4 (03:43→18:55)
[2016-11-07 04:17] VITALS: BP 117/68; PULSE 65; TEMP 36.9; O2SAT 97
[2016-11-07] MEDS: SODIUM CHLORIDE 0.9% 1000ML 1,000 ML IV SCH (05:06)
[2016-11-07] MEDS: ACETAMINOPHEN 500 MG TAB PO SCH ×3 (05:32→21:52)
[2016-11-07 06:56] VITALS: BP 118/68; PULSE 64; TEMP 36.8; O2SAT 96
[2016-11-07 07:39] LABS: HEMATOCRIT 31.2 % (42-52); MEAN CELL VOLUME 99.7 fL (80-100); MEAN CORPUSCULAR HEMOGLOBIN 33.5 pg (25-34); MEAN CORPUSCULAR HGB CONC 33.7 g/dl (32-36); MEAN PLATELET VOLUME 9.7 fL (7.4-10.4); PLATELET COUNT 287 K/uL (130-400); RED BLOOD COUNT 3.13 M/uL (4.7-6.1); WHITE BLOOD COUNT 16.45 K/uL (4.8-10.8)
--- NOTE | 2016-11-07 08:05 | Orthopedic Progress Note ---
Orthopedic Progress Note Date of Service Nov 07, 2016. Subjective Post OP Day: 1 Reports: feeling well Objective N/V intact, dressing C/D/I (Hemovac in place), toes mobile Date Time Temp Pulse Resp B/P (MAP) Pulse Ox O2 Delivery O2 Flow Rate FiO2 11/07/16 06:56 36.8 64 17 118/68 (85) 96 Room Air 11/07/16 04:17 36.9 65 16 117/68 (84) 97 Room Air 11/06/16 23:20 Room Air 11/06/16 22:43 36.8 90 16 130/80 (97) 94 Room Air 11/06/16 19:26 36.6 90 18 138/74 (95) 95 Nasal Cannula 2.0 11/06/16 16:00 Nasal Cannula 2.0 11/06/16 15:09 36.4 78 16 135/74 (94) 97 2.0 11/06/16 13:40 36.4 70 18 137/78 (97) 98 2.0 11/06/16 12:39 68 16 117/71 (86) 99 2.0 11/06/16 11:40 36.6 69 18 116/74 (88) 98 Nasal Cannula 2.0 11/06/16 11:10 36.5 62 16 125/73 (90) 97 2.0 11/06/16 10:40 97 Nasal Cannula 2.5 11/06/16 10:40 97 Nasal Cannula 2.5 11/06/16 10:40 36.5 58 16 118/70 (86) 97 Nasal Cannula 2.5 11/06/16 10:23 63 21 100 11/06/16 10:23 64 21 11/06/16 10:22 125/73 11/06/16 10:18 62 14 11/06/16 10:18 62 14 100 11/06/16 10:17 115/72 11/06/16 10:13 63 21 99 11/06/16 10:13 64 21 11/06/16 10:12 115/74 11/06/16 10:08 65 20 11/06/16 10:08 65 20 100 11/06/16 10:07 36.7 106/74 11/06/16 10:03 59 20 100 11/06/16 10:03 59 20 11/06/16 10:02 123/67 11/06/16 09:58 66 20 11/06/16 09:58 66 20 100 11/06/16 09:57 124/70 11/06/16 09:53 60 16 11/06/16 09:53 62 16 100 11/06/16 09:52 122/69 11/06/16 09:50 114/69 11/06/16 09:48 62 18 11/06/16 09:48 63 18 100 11/06/16 09:38 36.3 65 16 135/69 100 Mask 10 Laboratory Results 24 Hours: Test 11/06/16 13:19 11/07/16 07:14 White Blood Count 8.83 K/uL Red Blood Count 3.70 M/uL Hemoglobin 12.7 g/dL 10.5 g/dL Hematocrit 37.7 % 31.2 % Mean Corpuscular Volume 101.9 fL Mean Corpuscular Hemoglobin 34.3 pg Mean Corpuscular Hemoglobin Concent 33.7 g/dl Platelet Count 277 K/uL Mean Platelet Volume 9.9 fL Neutrophils (%) (Auto) 91.6 % Lymphocytes (%) (Auto) 8.0 % Monocytes (%) (Auto) 0.3 % Eosinophils (%) (Auto) 0.0 % Basophils (%) (Auto) 0.0 % Neutrophils # (Auto) 8.08 K/uL Lymphocytes # (Auto) 0.71 K/uL Monocytes # (Auto) 0.03 K/uL Eosinophils # (Auto) 0.00 K/uL Basophils # (Auto) 0.00 K/uL Assessment & Plan Assessment: 56 yo male stable POD #1 s/p right TKA Plan: 1. Med management 2. DVT prophylaxis- ASA, SCDs 3. PT/OT 4. D/C planning- home w/ HH
--- NOTE | 2016-11-07 08:07 | Discharge Instructions ---
Discharge Instructions Date of Service Nov 07, 2016. Admission Reason for Admission: Right & Left Knee Osteoarthritis Discharge Discharge Diagnosis / Problem: Right knee arthritis Discharge Goals Goal(s): Decrease discomfort, Improve function Activity Recommendations Activity Limitations: as noted below Weightbearing Status: Right weightbearing (as tolerated) . Instructions / Follow-Up Instructions / Follow-Up ACTIVITY RECOMMENDATIONS: SELF CARE INSTRUCTIONS AFTER TOTAL KNEE REPLACEMENT A. You may need to continue a physical therapy program after discharge from the hospital. There are several options available to you. Your doctor will assist you in selecting the best one for you. 1. An out-patient facility 2 to 3 times a week for therapy or home therapy. 2. Continue working on all exercises taught to you in the hospital. Your goals should be to increase bending of your knee to 90 degrees and beyond and to fully straighten your knee. B. You may progress at your own pace from walking with a walker or crutches to a cane; then to no assistive devices. C. Make walking a part of your daily routine. Be up as much as comfortable with rest periods throughout the day. Rest with leg elevation is very important. Use the ice wrap frequently for the first 3-4 weeks. D. There are no restrictions on activities. 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 E. Wear the long elastic stockings (SONNY hose) 20 hours a day for 2 weeks after surgery. They can be removed several times a day for laundering and for a bath. F. You may shower, no tub baths until cleared by your doctor. SPECIAL CARE INSTRUCTIONS: VERY IMPORTANT TO READ AND REVIEW A. There are a few signs you need to watch for after you are home. Call [facility] if you notice any of the followin. Increased severe knee pain. Some pain is expected especially when you exercise. 2. Increased swelling in your leg or knee; pain or swelling of the calf muscle in either lower leg. 3. Any fluid drainage from the incision. 4. Shortness of breath or chest pain. B. Please call [facility] at if you have any concerns or questions about your operation or recovery. The doctor or his nurse will return your call promptly. C. You must take antibiotics before dental work, bladder, bowel or other surgery. Your doctor will provide you with a permanent care to carry describing this precaution. IMPORTANT: * REMEMBER TO TAKE ASPIRIN, 81 MG, TWICE DAILY FOR 4 WEEKS UNLESS OTHERWISE DIRECTED. THIS IS YOUR BLOOD THINNER. * HIGH RISK PATIENTS MAY BE PRESCRIBED A STRONGER BLOOD THINNER. THIS WILL BE PROVIDED AT DISCHARGE. * CALL IF INCREASED PAIN, REDNESS, DRAINAGE OR FEVER GREATER THAT 101. * WEAR SONNY HOSE 20 HOURS PER DAY FOR 2 WEEKS. Silverlon- This is a large adhesive bandage that contains silver ions. This helps your incision heal by fighting off bacteria and protecting it from the outside environment. You are permitted to shower with this dressing. This will remain on your incision for 7 days and then should be removed. Some visible blood or drainage through the dressing window is normal. If there is significant drainage or leaking noted before the 7 days notify your doctor's office immediately. Once removed, keep incision clean and dry. If there is any drainage or redness noted, please call your surgeon. FOLLOW UP VISIT: If appointment is not already scheduled: Please call [facility] to make a follow-up appointment for 2 weeks after your surgery at . Current Hospital Diet Patient's current hospital diet: Diabetes Type 2 Diet Discharge Diet Recommended Diet: Diabetes Type 2 Diet Procedures Procedures Performed: Right Total Knee Arthroplasty; Left Knee intra-articular Injection Pending Studies Studies pending at discharge: no Laboratory Results Hemoglobin A1c Test 09/30/16 15:49 Range/Units Estimated Average Glucose 120 mg/dl Hemoglobin A1c 5.8 H 4.5-5.6 % Lipid Panel Test 08/13/16 15:04 Range/Units Triglycerides Level 98 0-150 mg/dl Cholesterol Level 124 0-200 mg/dl HDL Cholesterol 55 mg/dl Cholesterol/HDL Ratio 2.3 LDL Cholesterol, Calculated 49 mg/dl Medical Emergencies . Who to Call and When: Medical Emergencies: If at any time you feel your situation is an emergency, please call 911 immediately. . Non-Emergent Contact Non-Emergency issues call your: Surgeon Call Non-Emergent contact if: temperature is above 101.5, your pain is not controlled, wound has increased drainage, wound has increased redness . "Provider Documentation" section prepared by Lorenzo Aponte PA-C. . VTE Core Measure Inpt VTE Proph given/why not?: Other Anticoagulation (ASA 81mg bid), T.E.D. Stockings, SCD's [place] Drug Monitoring Program Search Results: patient reviewed within database, no issues identified
[2016-11-07 08:08] LABS: BUN/CREATININE RATIO 17.8 (10-20); CREATININE 0.83 mg/dl (0.60-1.40); POTASSIUM 3.9 mmol/L (3.5-5.1)
--- NOTE | 2016-11-07 08:11 | Hospitalist Progress Note ---
Hospitalist Progress Note Date of Service Nov 07, 2016. (Vivi Maldonado PA-C) Subjective Pt evaluation today including: conversation w/ patient, physical exam, chart review, lab review, review of studies Pain: Right knee PO Intake: Good Voiding: no voiding problems The patient was seen and examined this morning. Pt reports just finishing PT at 10am and that his pain is pretty significant currently. His abdominal pain is better today, and denies feeling distended. He tolerated breakfast without difficulty, denies nausea and vomiting. He is passing gas but hasn't had BM. He denies any other acute complaints. Additional Comments: ROS: 6 point ROS reviewed and otherwise negative. (Vivi Maldonado, STEVEN) Objective Vital Signs Date Time Temp Pulse Resp B/P (MAP) Pulse Ox O2 Delivery O2 Flow Rate FiO2 11/07/16 06:56 36.8 64 17 118/68 (85) 96 Room Air 11/07/16 04:17 36.9 65 16 117/68 (84) 97 Room Air 11/06/16 23:20 Room Air 11/06/16 22:43 36.8 90 16 130/80 (97) 94 Room Air 11/06/16 19:26 36.6 90 18 138/74 (95) 95 Nasal Cannula 2.0 11/06/16 16:00 Nasal Cannula 2.0 11/06/16 15:09 36.4 78 16 135/74 (94) 97 2.0 11/06/16 13:40 36.4 70 18 137/78 (97) 98 2.0 11/06/16 12:39 68 16 117/71 (86) 99 2.0 11/06/16 11:40 36.6 69 18 116/74 (88) 98 Nasal Cannula 2.0 11/06/16 11:10 36.5 62 16 125/73 (90) 97 2.0 11/06/16 10:40 97 Nasal Cannula 2.5 11/06/16 10:40 97 Nasal Cannula 2.5 11/06/16 10:40 36.5 58 16 118/70 (86) 97 Nasal Cannula 2.5 11/06/16 10:23 63 21 100 11/06/16 10:23 64 21 11/06/16 10:22 125/73 11/06/16 10:18 62 14 11/06/16 10:18 62 14 100 11/06/16 10:17 115/72 11/06/16 10:13 63 21 99 11/06/16 10:13 64 21 11/06/16 10:12 115/74 11/06/16 10:08 65 20 11/06/16 10:08 65 20 100 11/06/16 10:07 36.7 106/74 11/06/16 10:03 59 20 100 11/06/16 10:03 59 20 11/06/16 10:02 123/67 11/06/16 09:58 66 20 11/06/16 09:58 66 20 100 11/06/16 09:57 124/70 11/06/16 09:53 60 16 11/06/16 09:53 62 16 100 11/06/16 09:52 122/69 11/06/16 09:50 114/69 11/06/16 09:48 62 18 11/06/16 09:48 63 18 100 11/06/16 09:38 36.3 65 16 135/69 100 Mask 10 (Vivi Maldonado PA-C) Physical Exam General Appearance: WD/WN, no apparent distress, + pertinent finding Eyes: PERRL, EOMI ENT: hearing grossly normal, pharynx normal Neck: supple, thyroid normal Respiratory/Chest: lungs clear, normal breath sounds, no respiratory distress, no accessory muscle use Cardiovascular: regular rate, rhythm, no murmur Abdomen: normal bowel sounds, non tender, soft, + pertinent finding (mild distension) Extremities: non-tender, no pedal edema, no calf tenderness, + pertinent finding (R knee wrapped in KERMIT, hemmovac in place. R hand with finger deformity , chronic. ) Neurologic/Psychiatric: alert, normal mood/affect, oriented x 3 Skin: normal color, warm/dry (Vivi Maldonado PA-C) Laboratory Results Last 24 Hours Test 11/06/16 09:45 11/06/16 12:26 11/06/16 13:19 11/06/16 17:23 Bedside Glucose 99 mg/dl 197 mg/dl 214 mg/dl White Blood Count 8.83 K/uL Red Blood Count 3.70 M/uL Hemoglobin 12.7 g/dL Hematocrit 37.7 % Mean Corpuscular Volume 101.9 fL Mean Corpuscular Hemoglobin 34.3 pg Mean Corpuscular Hemoglobin Concent 33.7 g/dl Platelet Count 277 K/uL Mean Platelet Volume 9.9 fL Neutrophils (%) (Auto) 91.6 % Lymphocytes (%) (Auto) 8.0 % Monocytes (%) (Auto) 0.3 % Eosinophils (%) (Auto) 0.0 % Basophils (%) (Auto) 0.0 % Neutrophils # (Auto) 8.08 K/uL Lymphocytes # (Auto) 0.71 K/uL Monocytes # (Auto) 0.03 K/uL Eosinophils # (Auto) 0.00 K/uL Basophils # (Auto) 0.00 K/uL RDW Standard Deviation 46.6 fL RDW Coefficient of Variation 12.5 % Immature Granulocyte % (Auto) 0.1 % Immature Granulocyte # (Auto) 0.01 K/uL Sodium Level 142 mmol/L Potassium Level 4.3 mmol/L Chloride Level 108 mmol/L Carbon Dioxide Level 26 mmol/L Anion Gap 8.0 mmol/L Blood Urea Nitrogen 13 mg/dl Creatinine 0.81 mg/dl Est Creatinine Clear Calc Drug Dose 115.9 ml/min Estimated GFR () 113.5 Estimated GFR (Non- 98.0 BUN/Creatinine Ratio 16.6 Random Glucose 200 mg/dl Calcium Level 8.9 mg/dl Hepatitis C Antibody Screen NEG Test 11/06/16 20:39 11/07/16 07:14 Bedside Glucose 215 mg/dl White Blood Count 16.45 K/uL Red Blood Count 3.13 M/uL Hemoglobin 10.5 g/dL Hematocrit 31.2 % Mean Corpuscular Volume 99.7 fL Mean Corpuscular Hemoglobin 33.5 pg Mean Corpuscular Hemoglobin Concent 33.7 g/dl RDW Standard Deviation 44.6 fL RDW Coefficient of Variation 12.2 % Platelet Count 287 K/uL Mean Platelet Volume 9.7 fL Sodium Level 139 mmol/L Potassium Level 3.9 mmol/L Chloride Level 105 mmol/L Carbon Dioxide Level 26 mmol/L Anion Gap 8.0 mmol/L Blood Urea Nitrogen 15 mg/dl Creatinine 0.83 mg/dl Est Creatinine Clear Calc Drug Dose 113.1 ml/min Estimated GFR () 112.4 Estimated GFR (Non- 97.0 BUN/Creatinine Ratio 17.8 Random Glucose 160 mg/dl (Vivi Maldonado PA-C) Assessment and Plan 56 y/o male with a history of iron deficiency anemia, DM II, HLD, HTN, and h/o TIA who presents s/p right TKA and left knee intraarticular injection with Dr. Varghese on 11/06 for medical management. - Pain management, DVT prophylaxis, and PT/OT as per primary team - POD #1 - Pain bad currently after PT. Plans for acute rehab after hospital stay. Will live with is father after discharge from acute rehab. Abdominal pain/distention, nausea - resolved - No abdominal c/o this morning, tolerating diet, +passing gas, no BM - Bowel regimen to continue - Voiding without difficulty - Continue to monitor Iron deficiency anemia--stable. Baseline Hgb 12-13 -Hgb stable at 12.7 on 11/06 --> dropped to 10.5 but from acute surgical procedure. -Continue iron supplementation Diabetes mellitus type 2--last HgbA1c checked on 09/30/16 was 5.8 - Resume glipizide and metformin - Insulin sliding scale with accuchecks achs HLD -Continue simvastatin 40 mg PO qd HTN--stable - Cont losartan and amlodipine 5 mg PO qd - Cover with hydralazine 10 mg IV q6h prn SBP >180 Code Status: FULL CODE Disposition: From home, will need rehab stay, discharge per primary service. (Vivi Maldonado PA-C) Reviewed: Pt Seen/Exam by Me (Nika Russell, ) History Pt is doing well post-op. Pain is manageable. No SOB/chest pain. Tolerating diet without issue. Agree with HPI/ROS as noted. (Nika Russell, ) General Appearance: WD/WN, no apparent distress Respiratory: normal breath sounds, no respiratory distress Cardiovascular: normal peripheral pulses, regular rate, rhythm Gastrointestinal: non tender, soft Extremities: non-tender, no pedal edema Neurologic/Psychiatric: alert, normal mood/affect, oriented x 3 Skin Characteristics: normal color, warm/dry (Nika Russell DO) Assessment/Plan Agree with plan as outlined above Doing well s/p TKA DM, monitor Hb stable (Nika Russell, DO)
[2016-11-07 08:58] LABS: CALCIUM 7.8 mg/dl (8.5-10.1)
[2016-11-07] MEDS ORDERED: LOSARTAN POTASSIUM 50 MG TAB PO SCH (09:00)
[2016-11-07] MEDS: CETIRIZINE HCL 10 MG TAB PO SCH (09:26)
[2016-11-07] MEDS: CYANOCOBALAMIN 100 MCG TAB (VIT B-12) PO SCH ×2 (09:26→21:52)
[2016-11-07] MEDS: OXYCODONE HCL 10 MG TABCR (OXYCONTIN) PO SCH ×2 (09:26→21:52)
[2016-11-07] MEDS: FERROUS GLUCONATE 324 MG TAB PO SCH ×3 (09:27→18:57)
[2016-11-07] MEDS: MULTIVITAMIN TAB PO SCH (09:27)
[2016-11-07] MEDS: AMLODIPINE BESYLATE 5 MG TAB PO SCH (09:27)
[2016-11-07] MEDS: ASPIRIN 81 MG ECTAB PO SCH ×2 (09:27→21:52)
[2016-11-07] MEDS: DOCUSATE SODIUM 100 MG CAP PO SCH ×2 (09:27→21:52)
[2016-11-07] MEDS: INSULIN ASPART 100 UNITS/ML 3 ML PEN SC SCH ×4 (09:31→21:53)
[2016-11-07] MEDS: MoRPHine SULFATE 4 MG/ML 1 ML CARP\\VIAL IV PRN ×2 (10:32→15:33)
[2016-11-07 15:06] VITALS: BP 137/72; PULSE 70; TEMP 36.7; O2SAT 97
[2016-11-07] MEDS: METFORMIN HCL 500 MG TAB PO SCH (18:57)
[2016-11-07] MEDS: RANITIDINE HCL 150 MG TAB PO SCH (21:53)
[2016-11-07] MEDS: SENNA 8.6 MG TAB PO SCH (21:53)
[2016-11-07] MEDS: SIMVASTATIN 40 MG TAB PO SCH (21:53)
[2016-11-07 22:50] VITALS: BP 135/75; PULSE 63; TEMP 36.8; O2SAT 97
[2016-11-08] MEDS: OXYCODONE HCL IR 5 MG TAB (IMMEDIATE RELEASE) PO PRN ×2 (04:26→11:18)
[2016-11-08] MEDS: ACETAMINOPHEN 500 MG TAB PO SCH (05:49)
[2016-11-08] MEDS: INSULIN ASPART 100 UNITS/ML 3 ML PEN SC SCH ×2 (08:00→12:00)
[2016-11-08] MEDS: AMLODIPINE BESYLATE 5 MG TAB PO SCH (08:02)
[2016-11-08] MEDS: MULTIVITAMIN TAB PO SCH (08:02)
[2016-11-08] MEDS: METFORMIN HCL 500 MG TAB PO SCH (08:02)
[2016-11-08] MEDS: CYANOCOBALAMIN 100 MCG TAB (VIT B-12) PO SCH (08:02)
[2016-11-08] MEDS: CETIRIZINE HCL 10 MG TAB PO SCH (08:02)
[2016-11-08] MEDS: ASPIRIN 81 MG ECTAB PO SCH (08:02)
[2016-11-08] MEDS: FERROUS GLUCONATE 324 MG TAB PO SCH ×2 (08:03→12:53)
[2016-11-08] MEDS: DOCUSATE SODIUM 100 MG CAP PO SCH (08:03)
[2016-11-08] MEDS: OXYCODONE HCL 10 MG TABCR (OXYCONTIN) PO SCH (08:05)
--- NOTE | 2016-11-08 10:54 | Hospitalist Progress Note ---
Hospitalist Progress Note Date of Service Nov 08, 2016. Subjective Pt evaluation today including: conversation w/ patient, physical exam, chart review, lab review, review of inpatient medication list Pain: Improved today, managed with PO meds PO Intake: Tolerating PO diet Voiding: no voiding problems Patient reports feeling well. He states he is somewhat sore after doing physical therapy this morning, but his pain is much improved today compared to yesterday. He has been controlling his pain with oral medications only today. He denies any abdominal pain and has been voiding without difficulties. He is tolerating a PO diet well without issue. He states that he is passing gas but has not had a bowel movement yet. The patient denies fevers, chills, sweats, chest pain, palpitations, claudication, cough, wheezing, shortness of breath, nausea, vomiting, abdominal pain, dysuria, hematuria, urinary retention, paralysis, weakness, numbness and tingling. Additional Comments: See HPI for pertinent positives and negatives. All other systems reviewed and negative. Objective Vital Signs Date Time Temp Pulse Resp B/P (MAP) Pulse Ox O2 Delivery O2 Flow Rate FiO2 11/08/16 08:00 Room Air 11/07/16 23:20 Room Air 11/07/16 22:50 36.8 63 16 135/75 (95) 97 Room Air 11/07/16 15:30 Room Air 11/07/16 15:06 36.7 70 18 137/72 (93) 97 Room Air Physical Exam General Appearance: WD/WN, no apparent distress Eyes: normal inspection, PERRL, EOMI ENT: normal ENT inspection, hearing grossly normal, pharynx normal Neck: supple, no JVD, trachea midline Respiratory/Chest: lungs clear, normal breath sounds, no respiratory distress Cardiovascular: regular rate, rhythm, no gallop, no murmur Abdomen: normal bowel sounds, non tender, soft Extremities: normal inspection, no pedal edema, no calf tenderness Neurologic/Psychiatric: alert, normal mood/affect, oriented x 3 Skin: normal color, warm/dry, no rash Laboratory Results Last 24 Hours Test 11/07/16 11:59 11/07/16 16:47 11/07/16 20:28 11/08/16 07:58 Bedside Glucose 237 mg/dl 204 mg/dl 201 mg/dl 116 mg/dl Test 11/08/16 10:31 Assessment and Plan 56 y/o male with a history of iron deficiency anemia, DM II, HLD, HTN, and h/o TIA who presents s/p right TKA and left knee intraarticular injection with Dr. Varghese on 11/06 for medical management. -Pain management, DVT prophylaxis, and PT/OT as per primary team -POD #2 Abdominal pain/distention secondary to urinary retention--resolved -Bowel regimen already on board per ortho -Bladder scan 11/06 post op with 998 cc urine. Pt straight cathed for 1000 cc clear yellow urine -Pt now voiding on his own without difficulty, no more abdominal pain Iron deficiency anemia--stable. Baseline Hgb 12-13 -Hgb stable at 12.7 on 11/06 -Hgb down to 10.5 on 11/07 likely secondary to acute blood loss from surgical procedure. Down again to 9.8 on 11/08 -Continue iron supplementation, continue to monitor Diabetes mellitus type 2--last HgbA1c checked on 09/30/16 was 5.8 -Resume glipizide and metformin -Insulin sliding scale -Check BSGs q ac and qhs HLD -Continue simvastatin 40 mg PO qd HTN--stable -Resume losartan as renal function at baseline -Continue amlodipine 5 mg PO qd -Cover with hydralazine 10 mg IV q6h prn SBP >180 Code Status -Level I, FULL RESUSCITATION STATUS
[2016-11-08 11:10] LABS: HEMATOCRIT 29.1 % (42-52); MEAN CELL VOLUME 102.1 fL (80-100); MEAN CORPUSCULAR HEMOGLOBIN 34.4 pg (25-34); MEAN CORPUSCULAR HGB CONC 33.7 g/dl (32-36); MEAN PLATELET VOLUME 10.1 fL (7.4-10.4); PLATELET COUNT 250 K/uL (130-400); RED BLOOD COUNT 2.85 M/uL (4.7-6.1); WHITE BLOOD COUNT 11.74 K/uL (4.8-10.8)
--- NOTE | 2016-11-08 11:45 | Orthopedic Progress Note ---
Orthopedic Progress Note Date of Service Nov 08, 2016. Subjective Post OP Day: 2 Reports: feeling well, pain controlled w PO medications, Denies: complaints, chest pain, SOB, nausea / vomiting, light headedness, calf pain Objective calves soft nontender, N/V intact, capillary refill less than 2 sec., dressing C /D/I, A&O x3, toes mobile SILVERLON IN TACT Date Time Temp Pulse Resp B/P (MAP) Pulse Ox O2 Delivery O2 Flow Rate FiO2 11/08/16 08:00 Room Air 11/07/16 23:20 Room Air 11/07/16 22:50 36.8 63 16 135/75 (95) 97 Room Air 11/07/16 15:30 Room Air 11/07/16 15:06 36.7 70 18 137/72 (93) 97 Room Air Laboratory Results 24 Hours: Test 11/08/16 10:51 Hematocrit 29.1 % Hemoglobin 9.8 g/dL Assessment & Plan Assessment: 56 yo male stable POD #2 s/p right TKA, LEFT KNEE INJECTION Plan: 1. Med management 2. DVT prophylaxis- ASA, SCDs 3. PT/OT 4. D/C planning- home w/ HH
[2016-11-08 11:47] LABS: BUN/CREATININE RATIO 21.7 (10-20); CALCIUM 7.9 mg/dl (8.5-10.1); CREATININE 0.78 mg/dl (0.60-1.40); POTASSIUM 3.4 mmol/L (3.5-5.1)
[2016-11-08] MEDS ORDERED: RXC5 PO (11:48)
[2016-11-08] MEDS ORDERED: ACET-1138 PO (11:48)
[2016-11-08] MEDS ORDERED: ASPEC81 PO (11:48)
[2016-11-08] MEDS ORDERED: OXYSR10 PO (11:48)
[2016-11-08 11:54] VITALS: BP 135/75; PULSE 63; TEMP 36.8; O2SAT 97
[2016-11-08] MEDS ORDERED: POTASSIUM CHLORIDE 20 MEQ TABCR PO ONE (12:45)
--- NOTE | 2016-11-16 23:28 | DISCHARGE SUMMARY ---
DISCHARGE DIAGNOSIS: Degenerative joint disease, right knee; also, degenerative joint disease, left knee. 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 CONSULTS: Criss Teran PA-C/Alan Mercer MD. COMPLICATIONS: None. PROCEDURES: Right total knee arthroplasty and left knee intraarticular injection, performed by Dr. Varghese on 11/06/2016. BRIEF HISTORY: As dictated in the history and physical. HOSPITAL SUMMARY: The patient was admitted on the above-noted date and had the above-noted surgery performed, which he tolerated well. On his first postoperative day, he was feeling well. Neurovascularly intact. Dressings clean, dry and intact. Toes were mobile. Vital signs were stable. He was afebrile and hemoglobin was 10.5. He was started on physical therapy protocol and continued on DVT prophylaxis and pain management as well as medical management per [facility] hospitalist service. When seen by medicine service, he was having some abdominal pain and distention and nausea, which, by November 07, had dissipated. By November 08, he was noticing improvement and he was feeling well and his pain was controlled. Calves were soft and nontender, neurovascularly intact. Dressings were clean, dry and intact. Toes were mobile. Vital signs were stable. Hemoglobin was 9.8. Plans were for him to go home with home health services. He had been seen by the hospitalist service and it was felt that his abdominal distention was more due to urinary retention, which he had been straight cathed for, for 1000 mL of urine. He was voiding on his own by this time and he had no more abdominal discomfort and was remaining medically stable and it was felt he could be discharged to home on 11/08/2016. For further review, please see chart. LAB AND X-RAY DATA: As per chart. DISCHARGE INSTRUCTIONS: The patient was discharged to home in satisfactory condition on 11/08/2016. DIET: Diabetic. ACTIVITY: Weightbear as tolerated, right lower extremity. Follow TK instruction sheets and special care instructions, as noted, and follow up with Dr. Varghese in 2 weeks. The patient to call for appointment, if one has not been made for you. DISCHARGE MEDICATIONS: Acetaminophen 1000 mg p.o. q. 8 hours, aspirin 81 mg p.o. b.i.d., OxyContin 10 mg p.o. q. 12 hours, oxycodone 5-10 mg p.o. p.r.n. Resume home meds listed in the discharge medications.
[2016-12-30] MEDS ORDERED: ASCA500 PO (08:22)
[2016-12-30] MEDS ORDERED: GLC5 PO (08:22)
[2016-12-30] MEDS ORDERED: MULT-506 PO (08:22)
[2016-12-30] MEDS ORDERED: AMLO-110 PO (08:22)
[2016-12-30] MEDS ORDERED: FERR1TAB23 PO (08:22)
[2016-12-30] MEDS ORDERED: FLUT0.15 NAE (08:22)
[2016-12-30] MEDS ORDERED: CETI10TA84 PO (08:22)
[2016-12-30] MEDS ORDERED: LOSA1TAB38 PO (08:22)
[2016-12-30] MEDS ORDERED: RANI300T2 PO (08:22)
[2016-12-30] MEDS ORDERED: GLC500 PO (08:22)
[2016-12-30] MEDS ORDERED: CYAN100T PO (08:22)
[2016-12-30] MEDS ORDERED: ASPI81TA28 PO (16:52)
[2016-12-30] MEDS ORDERED: ACET-1256 PO (16:54)
== END 2016-11-08 13:53 | disposition home health service (06) | DRG 470 ==
LOC: C.ACU 06:04 → C.MSW 07:00 → ENRESERV 10:14
PROC: 3E0U33Z Introduction of Anti-inflammatory into Joints, Percutaneous Approach (ICD-10-PCS; principal; 2016-11-06 08:15)
PROC: 0SRC0J9 Replacement of Right Knee Joint with Synthetic Substitute, Cemented, Open Approach (ICD-10-PCS; principal; 2016-11-06 08:15)
PROC: 3E0U3BZ Introduction of Anesthetic Agent into Joints, Percutaneous Approach (ICD-10-PCS; principal; 2016-11-06 08:15)
DX: M17.0 Bilateral primary osteoarthritis of knee (principal); I10 Essential (primary) hypertension; E78.5 Hyperlipidemia, unspecified; F32.9 Major depressive disorder, single episode, unspecified; E11.9 Type 2 diabetes mellitus without complications; Z79.899 Other long term (current) drug therapy; Z79.82 Long term (current) use of aspirin; D50.9 Iron deficiency anemia, unspecified; R10.9 Unspecified abdominal pain; R11.0 Nausea

== ENCOUNTER 2016-12-13 16:08 | Observation (INO) | payer OTHER ==
[~2016-12-13] VITALS: Ht 180.3 cm; Wt 93.2 kg
[~2016-12-13 16:08] MED LIST changes: -ACETAMINOPHEN 500 MG TAB PO SCH; -CEFAZOLIN 2000 MG/60 ML D5W 60 ML IV SCH; -CeleBREX 200 MG CAP PO SCH; -DEXAMETHASONE 4 MG TAB PO SCH; -FAMOTIDINE 20 MG TAB PO SCH; -GABAPENTIN 300 MG CAP PO SCH; -LACTATED RINGER'S 1000ML 1,000 ML IV SCH; -LACTATED RINGER'S 1000ML 500 ML IV ONE; -LACTATED RINGER'S 1000ML IV SCH; -METOCLOPRAMIDE HCL 10 MG TAB PO SCH; +OXYSR10 PO; -ROPIVACAINE 5MG/ML 30 ML 150 MG, BUPIVACAINE/EPINEPHR 0.5% MPF 30 ML, KETOROLAC TROMETH... INFIL SCH
[2016-12-13] MEDS ORDERED: OXYCODONE HCL IR 5 MG TAB (IMMEDIATE RELEASE) PO STA (16:20)
[2016-12-13] MEDS ORDERED: ALBUT/IPRATROP 3MG/0.5MG NEB 3 ML VIAL INH ONE (16:30)
--- NOTE | 2016-12-13 16:37 | EMERGENCY ROOM VISIT NOTE ---
History Report prepared by Samantha: Merlene Webb Under the Supervision of: Dr. Michael Conner M.D. First contact with patient: 16:15 Chief Complaint: WEAKNESS Stated Complaint: NO ENERGY History of Present Illness The patient is a 56 year old male who presents to the Emergency Room with complaints of an episode of weakness starting this afternoon. The patient states that he had a hip replacement three months ago and a knee replacement a month ago. The patient states that he started his therapy this morning and was fine. He states that when he went to perform his afternoon therapy, he became very weak and started having difficulty breathing. The patient states that he is currently feeling hip and knee pain. He states that it is above his baseline and currently rates it as a 6/10 in severity. He notes that he takes Oxycodone for this pain, but is out until Thursday when he sees his doctor. The patient denies a cardiac history and a history of difficulty with his lungs. He notes he did have a stress test in 2014 that came back normal. The patient denies smoking, a family history of cardiac issues, falls, and high cholesterol. He notes that he suffers from hypertension. Source of History: patient Onset: this afternoon Position: other (global) Symptom Intensity: 6/10 Quality: other (global) Timing: other (episode) Associated Symptoms: + SOB Note: The patient complains of hip and knee pain. The patient denies falling. Review of Systems See HPI for pertinent positives & negatives. A total of 10 systems reviewed and were otherwise negative. 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 Social History Smoking Status: Never Smoker Alcohol Use: other Drug Use: none, other Marital Status: single Housing Status: lives alone Occupation Status: disabled Current/Historical Medications Scheduled Amlodipine (Norvasc), 5 MG PO QAM Amoxicillin & Pot Clavulanate (Augmentin 795125 mg), 875 MG PO BID Ascorbic Acid (Vitamin C), 500 MG PO BID Aspirin (Aspirin Ec), 81 MG PO DAILY Cetirizine (Zyrtec), 10 MG PO QAM Cyanocobalamin (Vitamin B-12), 100 MCG PO BID Ferrous Sulfate (Iron), 325 MG PO BID Glipizide (Glipizide), 5 MG PO BID Losartan Potassium (Cozaar), 100 MG PO QAM Metformin HCl (Metformin HCl), 1,000 MG PO BID Multivitamin (Multivitamin), 1 TAB PO QAM Ranitidine Hcl (Zantac), 300 MG PO HS Rivaroxaban (Xarelto), 15 MG PO BID Simvastatin (Simvastatin), 40 MG PO HS Scheduled PRN Acetaminophen (Tylenol), 1,000 MG PO Q8 PRN for Pain or Fever Fluticasone Propionate (Nasal) (Flonase Allergy Relief), 2 SPRAY JULIO UD PRN for PRN Oxycodone Ir (Roxicodone Ir), 5 MG PO Q4H PRN for Severe Pain Allergies Coded Allergies: Fluorouracil (Verified Allergy, Severe, SEVERE RASH, BLISTERS, PAIN, ) WAS GIVEN FOR TREATMENT OF MULTIPLE SKIN LESIONS. Physical Exam Vital Signs Date Time Temp Pulse Resp B/P (MAP) Pulse Ox O2 Delivery O2 Flow Rate FiO2 12/13/16 18:45 82 18 112/67 98 Room Air 12/13/16 17:10 73 20 98 Room Air 12/13/16 16:47 76 12/13/16 16:41 98 Room Air 12/13/16 16:41 98 Room Air 12/13/16 16:11 36.7 87 19 169/83 97 Room Air Physical Exam GENERAL: Patient is a healthy-appearing well-nourished HEAD: Normocephalic atraumatic EYES: Ocular movements intact pupils equal and react to light OROPHARYNX mucous membranes are moist no exudates present no erythema or edema present NECK: Supple no nuchal rigidity CHEST: Good equal expansion LUNGS: Slight bilateral inspiratory wheezing CARDIAC: Normal S1 and S2 ABDOMEN: Soft nontender no guarding BACK: No CVA tenderness EXTREMITIES: No pain upon palpation normal muscle strength in all groups no clubbing cyanosis or edema NEURO: Patient is following commands and answering questions appropriately. Alert and oriented x3 Cranial Nerves 2-12 grossly intact Medical Decision & Procedures ER Provider Diagnostic Interpretation: Radiology results as stated below per my review and radiologist interpretation: CHEST ONE VIEW PORTABLE CLINICAL HISTORY: Pt c/o SOB dyspnea COMPARISON STUDY: 08/21/2016 FINDINGS: Mild stable tortuosity thoracic aorta. Lungs are clear. Diaphragms are smooth. Unchanging postoperative changes right humerus IMPRESSION: No acute process. The above report was generated using voice recognition software. It may contain grammatical, syntax or spelling errors. Electronically signed by: Aravind Allen M.D. 12/13/2016 4:35 PM Dictated Date/Time: 12/13/2016 4:34 PM (CHEST FOR PE) ANGIO WITH CT DOSE: 522.58 mGy.cm HISTORY: Chest pain dyspnea TECHNIQUE: Multiaxial CT images of the chest were performed following the intravenous administration of contrast to evaluate the pulmonary arteries. Maximal intensity projection images were also obtained. COMPARISON STUDY: None. FINDINGS: Poor study technically due to patient respiratory and somatic motion. The main central pulmonary arterial vasculature appears to enhance appropriately. There are no major central filling defects. Considerable artifact makes fibrillation of the distal pulmonary arterial vasculature difficult. Several small third order filling defect potentially exist within the right as well as left lower lobe distributions. Evaluation of lung parenchyma demonstrates slight interstitial prominence in the mid to lower lung regions bilaterally. True focal consolidative infiltrate is not appreciated. IMPRESSION: 1. Limited exam due to respiratory and somatic motion. 2. No evidence for a main or second order pulmonary embolus. 3. Inhomogeneous enhancement of the peripheral third order vessels at the lung bases raising the possibility of several small peripheral emboli of the lower lung regions. 4. nonspecific interstitial prominence of the mid to lower lungs bilaterally The above report was generated using voice recognition software. It may contain grammatical, syntax or spelling errors. Electronically signed by: Aravind Allen M.D. 12/13/2016 7:22 PM Dictated Date/Time: 12/13/2016 7:15 PM Laboratory Results 12/13/16 16:50 Red Blood Count 3.53, Mean Corpuscular Volume 102.0, Mean Corpuscular Hemoglobin 32.0, Mean Corpuscular Hemoglobin Concent 31.4, Mean Platelet Volume 9.5, Neutrophils (%) (Auto) 69.2, Lymphocytes (%) (Auto) 23.2, Monocytes (%) ( Auto) 6.5, Eosinophils (%) (Auto) 1.0, Basophils (%) (Auto) 0.1, Neutrophils # ( Auto) 5.52, Lymphocytes # (Auto) 1.85, Monocytes # (Auto) 0.52, Eosinophils # ( Auto) 0.08, Basophils # (Auto) 0.01 12/13/16 16:50 Test 12/13/16 16:50 12/13/16 16:55 12/13/16 16:57 12/13/16 18:40 White Blood Count 7.98 K/uL (4.8-10.8) Red Blood Count 3.53 M/uL (4.7-6.1) Hemoglobin 11.3 g/dL (14.0-18.0) Hematocrit 36.0 % (42-52) Mean Corpuscular Volume 102.0 fL (80-100) Mean Corpuscular Hemoglobin 32.0 pg (25-34) Mean Corpuscular Hemoglobin Concent 31.4 g/dl (32-36) Platelet Count 303 K/uL (130-400) Mean Platelet Volume 9.5 fL (7.4-10.4) Neutrophils (%) (Auto) 69.2 % Lymphocytes (%) (Auto) 23.2 % Monocytes (%) (Auto) 6.5 % Eosinophils (%) (Auto) 1.0 % Basophils (%) (Auto) 0.1 % Neutrophils # (Auto) 5.52 K/uL (1.4-6.5) Lymphocytes # (Auto) 1.85 K/uL (1.2-3.4) Monocytes # (Auto) 0.52 K/uL (0.11-0.59) Eosinophils # (Auto) 0.08 K/uL (0-0.5) Basophils # (Auto) 0.01 K/uL (0-0.2) RDW Standard Deviation 46.9 fL (36.4-46.3) RDW Coefficient of Variation 12.7 % (11.5-14.5) Immature Granulocyte % (Auto) 0.0 % Immature Granulocyte # (Auto) 0.00 K/uL (0.00-0.02) Est Creatinine Clear Calc Drug Dose 106.7 ml/min Estimated GFR () 109.7 Estimated GFR (Non- 94.7 BUN/Creatinine Ratio 13.0 (10-20) Calcium Level 8.8 mg/dl (8.5-10.1) Total Bilirubin 0.1 mg/dl (0.2-1) Aspartate Amino Transf (AST/SGOT) 22 U/L (15-37) Alanine Aminotransferase (ALT/SGPT) 24 U/L (12-78) Alkaline Phosphatase 39 U/L (45-117) Total Creatine Kinase 86 U/L (39-308) Creatine Kinase MB 1.4 ng/ml (0.5-3.6) Creatine Kinase MB Ratio 1.6 (0-3.0) Troponin I < 0.015 ng/ml (0-0.045) Total Protein 7.0 gm/dl (6.4-8.2) Albumin 3.6 gm/dl (3.4-5.0) Globulin 3.4 gm/dl (2.5-4.0) Albumin/Globulin Ratio 1.1 (0.9-2) Lyme Disease IgG Antibody NEG (NEG) Lyme Disease IgM Antibody NEG (NEG) Bedside Hemoglobin 11.9 g/dl (14.0-18.0) Bedside Hematocrit 35 % (42-52) Bedside Sodium 144 mEq/L (135-144) Bedside Potassium 3.7 mEq/L (3.3-5.0) Bedside Chloride 103 mEq/L (101-112) Bedside Total CO2 25 mEq/l (24-31) Anion Gap 20.0 mmol/L (16-25) Bedside Blood Urea Nitrogen 11 mg/dl (7-18) Bedside Creatinine 0.7 mg/dl (0.6-1.3) Bedside Glucose (other) 229 mg/dl (70-99) Bedside Ionized Calcium (Leeann) 1.21 mmol/l (1.12-1.32) Bedside D-Dimer > 450 ng/mlFEU (0-450) Urine Color YELLOW Urine Appearance CLEAR (CLEAR) Urine pH 6.0 (4.5-7.5) Urine Specific Reeds 1.029 (1.000-1.030) Urine Protein NEG (NEG) Urine Glucose (UA) 3+ (NEG) Urine Ketones TRACE (NEG) Urine Occult Blood NEG (NEG) Urine Nitrite NEG (NEG) Urine Bilirubin NEG (NEG) Urine Urobilinogen NEG (NEG) Urine Leukocyte Esterase NEG (NEG) Test 12/13/16 20:04 Prothrombin Time 10.4 SECONDS (9.0-12.0) Prothromb Time International Ratio 1.0 (0.9-1.1) Activated Partial Thromboplast Time 22.5 SECONDS (21.0-31.0) Partial Thromboplastin Ratio 0.9 Labs reviewed by ED physician. Medications Administered Medications (Trade) Dose Ordered Sig/Adan Route Start Time Stop Time Status Last Admin Dose Admin Oxycodone HCl (Roxicodone Immediate Rel Tab) 5 mg NOW STAT PO 12/13/16 16:20 12/13/16 16:23 DC 12/13/16 16:42 5 MG Albuterol/ Ipratropium (Duoneb) 12 ml ONE ONCE INH 12/13/16 16:30 12/13/16 16:31 DC 12/13/16 16:30 12 ML ECG Indication: weakness Rate (beats per minute): 74 Rhythm: normal sinus Findings: no acute ischemic change, no ectopy ED Course 1616: Past medical records reviewed. The patient was evaluated in room B5. A complete history and physical examination was performed. 1619: Ordered Oxycodone HCl 5 mg PO. 1629: Ordered Duoneb 12 ml INH. 1939: I discussed the patient's case with Dr. Mercer, he has agreed to evaluate the patient for further management and care. Medical Decision Medication Reconciliation: I attest that I have personally reviewed the patient' s current medication list Blood Pressure Screening: Patient was found to have normal blood pressure on screening and does not require follow up. Differential diagnosis: Etiologies such as metabolic, infection, hypo/hyperglycemia, electrolyte abnormalities, cardiac sources, intracerebral event, toxicologic, neurologic, as well as others were entertained. This is a 56-year-old male who presents emergency department complaining of shortness of breath that started suddenly while he was at rehabilitation today. Based on the nature the patient's complaint my concern is for a PE. Therefore an i-STAT and laboratory work were obtained. The patient does have a positive d-dimer. He was sent for a CAT scan of the chest which was concerning for possible heat multiple PEs. I did discuss the case with the hospitalist service who agreed to admit the patient. Patient was in agreement with the treatment plan. Consults Time Called: 1937 Consulting Physician: Dr. Mercer Returned Call: 1939 I discussed the patient's case with Dr. Mercer, he has agreed to evaluate the patient for further management and care. Impression Primary Impression: SOB (shortness of breath) Scribe Attestation The scribe's documentation has been prepared under my direction and personally reviewed by me in its entirety. I confirm that the note above accurately reflects all work, treatment, procedures, and medical decision making performed by me. Departure Information Dispostion Being Evaluated By Hospitalist Prescriptions Amoxicillin & Pot Clavulanate (Augmentin 875-125 mg) 1 Tab Tab 875 MG PO BID for 10 Days, #20 TAB Prov: Jakob Perez D.O. 12/14/16 Rivaroxaban (Xarelto) 15 Mg Tab 15 MG PO BID for 21 Days, #42 TABS 0 Refills Prov: Jakob Perez D.O. 12/14/16 Oxycodone Ir (Roxicodone Ir) 5 Mg Tab 5 MG PO Q4H Y for Severe Pain, #4 TAB 0 Refills Prov: Jakob Perez D.O. 12/14/16 Referrals No Doctor, Assigned (PCP) Patient Instructions My [facility]
[2016-12-13] MEDS ORDERED: OXYC1TAB3 PO (16:53)
[2016-12-13 17:01] LABS: BASO % 0.1 %; BASO ABS # 0.01 K/uL (0-0.2); COMPLETE YES; LYMPH % 23.2 %; LYMPH ABS # 1.85 K/uL (1.2-3.4); MEAN CORPUSCULAR HGB CONC 31.4 g/dl (32-36); MEAN PLATELET VOLUME 9.5 fL (7.4-10.4); MONO % 6.5 %; NEUT % 69.2 %; PLATELET COUNT 303 K/uL (130-400); RED BLOOD COUNT 3.53 M/uL (4.7-6.1); WHITE BLOOD COUNT 7.98 K/uL (4.8-10.8)
[2016-12-13 17:10] VITALS: PULSE 73; O2SAT 98
[2016-12-13 17:11] LABS: PROTHROMBIN TIME (PATIENT) 10.3 SECONDS (9.0-12.0)
[2016-12-13 17:18] LABS: ALT/SGPT 24 U/L (12-78); BLOOD UREA NITROGEN 11 mg/dl (7-18); CALCIUM 8.8 mg/dl (8.5-10.1); CARBON DIOXIDE 28 mmol/L (21-32); CHLORIDE 109 mmol/L (98-107); CREATININE 0.88 mg/dl (0.60-1.40); GLUCOSE 222 mg/dl (70-99); POTASSIUM 3.7 mmol/L (3.5-5.1); SODIUM 144 mmol/L (136-145)
[2016-12-13 17:23] LABS: ALB/GLOB RATIO 1.1 (0.9-2); ALKALINE PHOSPHATASE 39 U/L (45-117); AST/SGOT 22 U/L (15-37); CKMB/CK RATIO 1.6 (0-3.0)
[2016-12-13 17:26] LABS: ISTAT CREATININE 0.7 mg/dl (0.6-1.3); ISTAT HEMOGLOBIN 11.9 g/dl (14.0-18.0); ISTAT IONIZED CALCIUM 1.21 mmol/l (1.12-1.32)
[2016-12-13] MEDS ORDERED: OPTIRAY 320 IV PRN (17:30)
[2016-12-13 17:49] LABS: LYME DISEASE AB IGG NEG (NEG); LYME DISEASE AB IGM NEG (NEG)
[2016-12-13 18:52] LABS: URINE APPEARANCE CLEAR (CLEAR); URINE BILIRUBIN NEG (NEG); URINE COLOR YELLOW; URINE NITRITE NEG (NEG); URINE SPECIFIC GRAVITY 1.029 (1.000-1.030); UROBILINOGEN NEG (NEG)
[2016-12-13 18:56] LABS: MANUAL MICROSCOPIC REQUIRED? NO; REVIEW REQ? NO
--- NOTE | 2016-12-13 19:24 | DIAGNOSTIC IMAGING REPORT ---
(CHEST FOR PE) ANGIO WITH CT DOSE: 522.58 mGy.cm HISTORY: Chest pain dyspnea TECHNIQUE: Multiaxial CT images of the chest were performed following the intravenous administration of contrast to evaluate the pulmonary arteries. Maximal intensity projection images were also obtained. COMPARISON STUDY: None. FINDINGS: Poor study technically due to patient respiratory and somatic motion. The main central pulmonary arterial vasculature appears to enhance appropriately. There are no major central filling defects. Considerable artifact makes fibrillation of the distal pulmonary arterial vasculature difficult. Several small third order filling defect potentially exist within the right as well as left lower lobe distributions. Evaluation of lung parenchyma demonstrates slight interstitial prominence in the mid to lower lung regions bilaterally. True focal consolidative infiltrate is not appreciated. IMPRESSION: 1. Limited exam due to respiratory and somatic motion. 2. No evidence for a main or second order pulmonary embolus. 3. Inhomogeneous enhancement of the peripheral third order vessels at the lung bases raising the possibility of several small peripheral emboli of the lower lung regions. 4. nonspecific interstitial prominence of the mid to lower lungs bilaterally The above report was generated using voice recognition software. It may contain grammatical, syntax or spelling errors. Electronically signed by: Aravind Allen M.D. 12/13/2016 7:22 PM Dictated Date/Time: 12/13/2016 7:15 PM
[2016-12-13 20:25] LABS: PARTIAL THROMBOPLASTIN RATIO 0.9; PROTHROMBIN TIME (PATIENT) 10.4 SECONDS (9.0-12.0)
[2016-12-13] MEDS ORDERED: ALUMINUM/MAGNESIUM/SIMETH (MAALOX MAX) 30 ML UDC PO PRN (20:30)
[2016-12-13] MEDS ORDERED: MAGNESIUM HYDROXIDE SUSP 30 ML UDC PO PRN (20:30)
[2016-12-13] MEDS ORDERED: ACETAMINOPHEN 325 MG TAB PO PRN (20:30)
[2016-12-13] MEDS ORDERED: POLYETHYLENE (MIRALAX) 17 GM PACK PO PRN (20:30)
[2016-12-13] MEDS ORDERED: ONDANSETRON INJ 2 MG/ML 2 ML VIAL IV PRN (20:30)
[2016-12-13] MEDS ORDERED: IV FLUIDS COMPLETED PRN (20:30)
[2016-12-13 20:40] VITALS: O2SAT 98
--- NOTE | 2016-12-13 20:46 | DIAGNOSTIC IMAGING REPORT ---
VENOUS DOPPLER LW EXT BILAT HISTORY: Chest pain small PE ?clot COMPARISON STUDY: None. FINDINGS: There is normal compressibility, flow, and augmentation within the bilateral lower extremity deep venous systems. IMPRESSION: No DVT within the right or left lower extremity. The above report was generated using voice recognition software. It may contain grammatical, syntax or spelling errors. Electronically signed by: Aravind Allen M.D. 12/13/2016 8:44 PM Dictated Date/Time: 12/13/2016 8:44 PM
--- NOTE | 2016-12-13 20:55 | History and Physical ---
History & Physical Date & Time of Service: Dec 13, 2016 at 20:55 Chief Complaint: No Energy Primary Care Physician: David Noland M.D. History of Present Illness Source: patient Tavon is a 56-year-old male who presents today with not feeling well. He has a history of hypertension, hyperlipidemia, type 2 diabetes, and recently had his right knee replaced on 11/06/2016, with a left knee injection at the same time. He reports he is living at home with his dad, and is usually able to perform his home physical therapy. He noticed that today however he was unable to get himself to do the activities he normally does. He reports postoperatively he took a baby aspirin for about a month. He denies any chest pain, shortness of breath, but reports feeling like he has a dry mouth, fast heart rate, and occasional fevers and night sweats. 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 Social History Smoking Status: Never Smoker Drug Use: none, other Marital Status: single Housing status: lives with family Occupational Status: disabled Multi-Drug Resistant Organisms History of MDRO: No Allergies Coded Allergies: Fluorouracil (Verified Allergy, Severe, SEVERE RASH, BLISTERS, PAIN, ) WAS GIVEN FOR TREATMENT OF MULTIPLE SKIN LESIONS. Home Medications Scheduled Amlodipine (Norvasc), 5 MG PO QAM Amoxicillin & Pot Clavulanate (Augmentin 875-125 mg), 875 MG PO BID Ascorbic Acid (Vitamin C), 500 MG PO BID Aspirin (Aspirin Ec), 81 MG PO DAILY Cetirizine (Zyrtec), 10 MG PO QAM Cyanocobalamin (Vitamin B-12), 100 MCG PO BID Ferrous Sulfate (Iron), 325 MG PO BID Glipizide (Glipizide), 5 MG PO BID Losartan Potassium (Cozaar), 100 MG PO QAM Metformin HCl (Metformin HCl), 1,000 MG PO BID Multivitamin (Multivitamin), 1 TAB PO QAM Ranitidine Hcl (Zantac), 300 MG PO HS Rivaroxaban (Xarelto), 15 MG PO BID Simvastatin (Simvastatin), 40 MG PO HS Scheduled PRN Acetaminophen (Tylenol), 1,000 MG PO Q8 PRN for Pain or Fever Fluticasone Propionate (Nasal) (Flonase Allergy Relief), 2 SPRAY JULIO UD PRN for PRN Oxycodone Ir (Roxicodone Ir), 5 MG PO Q4H PRN for Severe Pain Review of Systems See HPI for pertinent positives & negatives. A total of 10 systems reviewed and were otherwise negative. Physical Exam Vital Signs Date Time Temp Pulse Resp B/P (MAP) Pulse Ox O2 Delivery O2 Flow Rate FiO2 12/13/16 18:45 82 18 112/67 98 Room Air 12/13/16 17:10 73 20 98 Room Air 12/13/16 16:47 76 12/13/16 16:41 98 Room Air 12/13/16 16:41 98 Room Air 12/13/16 16:11 36.7 87 19 169/83 97 Room Air GENERAL: Awake, alert, well-appearing, in no acute distress HENT: Normocephalic, atraumatic. Oropharynx dry. EYES: Normal conjunctiva. Sclera non-icteric. NECK: Supple. No nuchal rigidity. FROM. No JVD. RESPIRATORY: Clear to auscultation, mild bibasilar wheezing. CARDIAC: Regular rate, normal rhythm. Extremities warm and well perfused. Pulses equal. ABDOMEN: Soft, non-distended. No tenderness to palpation. No rebound or guarding. No masses. MUSCULOSKELETAL: Chest examination reveals no tenderness. The back is symmetrical on inspection without obvious abnormality. There is no CVA tenderness to palpation. No joint edema. Well healed scar over R leg. LOWER EXTREMITIES: Calves are equal size bilaterally and non-tender. No edema. No discoloration. NEURO: Normal sensorium. No sensory or motor deficits noted. SKIN: No rash or jaundice noted. Diagnostics Laboratory Results Results Past 24 Hours Test 12/13/16 16:50 12/13/16 16:55 12/13/16 16:57 12/13/16 18:40 Range/Units White Blood Count 7.98 4.8-10.8 K/uL Red Blood Count 3.53 4.7-6.1 M/uL Hemoglobin 11.3 14.0-18.0 g/dL Hematocrit 36.0 42-52 % Mean Corpuscular Volume 102.0 80-100 fL Mean Corpuscular Hemoglobin 32.0 25-34 pg Mean Corpuscular Hemoglobin Concent 31.4 32-36 g/dl Platelet Count 303 130-400 K/uL Mean Platelet Volume 9.5 7.4-10.4 fL Neutrophils (%) (Auto) 69.2 % Lymphocytes (%) (Auto) 23.2 % Monocytes (%) (Auto) 6.5 % Eosinophils (%) (Auto) 1.0 % Basophils (%) (Auto) 0.1 % Neutrophils # (Auto) 5.52 1.4-6.5 K/uL Lymphocytes # (Auto) 1.85 1.2-3.4 K/uL Monocytes # (Auto) 0.52 0.11-0.59 K/uL Eosinophils # (Auto) 0.08 0-0.5 K/uL Basophils # (Auto) 0.01 0-0.2 K/uL RDW Standard Deviation 46.9 36.4-46.3 fL RDW Coefficient of Variation 12.7 11.5-14.5 % Immature Granulocyte % (Auto) 0.0 % Immature Granulocyte # (Auto) 0.00 0.00-0.02 K/uL Prothrombin Time 10.3 9.0-12.0 SECONDS Prothromb Time International Ratio 1.0 0.9-1.1 Sodium Level 144 136-145 mmol/L Potassium Level 3.7 3.5-5.1 mmol/L Chloride Level 109 98-107 mmol/L Carbon Dioxide Level 28 21-32 mmol/L Anion Gap 7.0 20.0 16-25 mmol/L Blood Urea Nitrogen 11 7-18 mg/dl Creatinine 0.88 0.60-1.40 mg/dl Est Creatinine Clear Calc Drug Dose 106.7 ml/min Estimated GFR () 109.7 Estimated GFR (Non- 94.7 BUN/Creatinine Ratio 13.0 10-20 Random Glucose 222 70-99 mg/dl Calcium Level 8.8 8.5-10.1 mg/dl Total Bilirubin 0.1 0.2-1 mg/dl Aspartate Amino Transf (AST/SGOT) 22 15-37 U/L Alanine Aminotransferase (ALT/SGPT) 24 12-78 U/L Alkaline Phosphatase 39 45-117 U/L Total Creatine Kinase 86 39-308 U/L Creatine Kinase MB 1.4 0.5-3.6 ng/ml Creatine Kinase MB Ratio 1.6 0-3.0 Troponin I < 0.015 0-0.045 ng/ml Total Protein 7.0 6.4-8.2 gm/dl Albumin 3.6 3.4-5.0 gm/dl Globulin 3.4 2.5-4.0 gm/dl Albumin/Globulin Ratio 1.1 0.9-2 Lyme Disease IgG Antibody NEG NEG Lyme Disease IgM Antibody NEG NEG Bedside Hemoglobin 11.9 14.0-18.0 g/dl Bedside Hematocrit 35 42-52 % Bedside Sodium 144 135-144 mEq/L Bedside Potassium 3.7 3.3-5.0 mEq/L Bedside Chloride 103 101-112 mEq/L Bedside Total CO2 25 24-31 mEq/l Bedside Blood Urea Nitrogen 11 7-18 mg/dl Bedside Creatinine 0.7 0.6-1.3 mg/dl Bedside Glucose (other) 229 70-99 mg/dl Bedside Ionized Calcium (Leeann) 1.21 1.12-1.32 mmol/l Bedside D-Dimer > 450 0-450 ng/mlFEU Urine Color YELLOW Urine Appearance CLEAR CLEAR Urine pH 6.0 4.5-7.5 Urine Specific [place] 1.029 1.000-1.030 Urine Protein NEG NEG Urine Glucose (UA) 3+ NEG Urine Ketones TRACE NEG Urine Occult Blood NEG NEG Urine Nitrite NEG NEG Urine Bilirubin NEG NEG Urine Urobilinogen NEG NEG Urine Leukocyte Esterase NEG NEG Test 12/13/16 19:43 12/13/16 20:04 Range/Units Prothrombin Time 10.4 9.0-12.0 SECONDS Prothromb Time International Ratio 1.0 0.9-1.1 Activated Partial Thromboplast Time 22.5 21.0-31.0 SECONDS Partial Thromboplastin Ratio 0.9 Diagnostic Radiology (CHEST FOR PE) ANGIO WITH CT DOSE: 522.58 mGy.cm HISTORY: Chest pain dyspnea TECHNIQUE: Multiaxial CT images of the chest were performed following the intravenous administration of contrast to evaluate the pulmonary arteries. Maximal intensity projection images were also obtained. COMPARISON STUDY: None. FINDINGS: Poor study technically due to patient respiratory and somatic motion. The main central pulmonary arterial vasculature appears to enhance appropriately. There are no major central filling defects. Considerable artifact makes fibrillation of the distal pulmonary arterial vasculature difficult. Several small third order filling defect potentially exist within the right as well as left lower lobe distributions. Evaluation of lung parenchyma demonstrates slight interstitial prominence in the mid to lower lung regions bilaterally. True focal consolidative infiltrate is not appreciated. IMPRESSION: 1. Limited exam due to respiratory and somatic motion. 2. No evidence for a main or second order pulmonary embolus. 3. Inhomogeneous enhancement of the peripheral third order vessels at the lung bases raising the possibility of several small peripheral emboli of the lower lung regions. 4. nonspecific interstitial prominence of the mid to lower lungs bilaterally CXR normal EKG Normal sinus rhythm Non-specific intra-ventricular conduction block Abnormal ECG When compared with ECG of 21-AUG-2016 09:05, Nonspecific T wave abnormality no longer evident in Inferior leads Impression Assessment and Plan 56 yo M with hypertension, hyperlipidemia, diabetes, 1 month status post right knee arthroplasty, who presents with fatigue, and found to potentially a small pulmonary embolism on CT scan. Pulmonary embolism - We will give a dose of Xarelto tonight - We will obtain venous duplex of the legs, to see if this is origin of his clot - ED ordered hypercoaguable workup, still pending - Will defer to day team if they want to consult Pulm to r/v images/diagnosis Hypertension - Continue home Losartan Type 2 DM - Continue home Metformin and Glipizide Fatigue/ Dry mouth - Will provide IV fluid hydration overnight Hyperlipidemia - Will continue home statin VTE: Xarelto CODE STATUS: Full Dispo: Med/Surg Attending Addendum: I have physically seen and examined this patient, have supervised the medical residents activities, and agree with the H&P as noted above with the following exceptions: NONE The patient is awake, well-developed and adequately nourished, alert and oriented 3, normocephalic and atraumatic, lying in bed and in no acute distress. HEENT--PERRL, EOMI, mucous membranes and oropharynx dry. Neck--supple, no JVD or bruits, thyroid normal, trachea midline, no adenopathy. Heart--normal S1 and S2, no extra beats, no murmurs, rubs or gallops. Lungs--clear bilaterally but diminished throughout, no respiratory distress, no accessory muscle use. Abdomen--normal bowel sounds and soft, nontender and nondistended, no hernias or masses, no organomegaly. Extremities--no cyanosis, clubbing or edema. There are good distal pulses b/l. Dermatologic--normal skin turgor, normal color, warm and dry, no abnormal lymph nodes, no rash. Neurologic--cranial nerves II through XII grossly intact, motor and sensory examination normal. Rheumatologic--normal range of motion, nontender, muscles and joints. Psychiatric--normal affect. Assessment and Plan: 1. Pulmonary emboli--The patient will be admitted to telemetry for serial cardiac enzymes, cardiac rhythm monitoring and a 2-D echocardiogram with Dopplers. Patient will be started on Xarelto tonight. Order venous Doppler of bilateral lower extremities to assess for possible origin of clot and determine level of activity over the next 24 hours. Follow hypercoagulable workup ordered in the ED. Continue losartan for hypertension. Continue glipizide for diabetes mellitus, hold metformin, and place on Accu- Cheks before meals and at bedtime with NovoLog coverage per scale. Rehydrate with IV fluids, and follow serial BMP and magnesium levels. Continue home dosing of statin. VTE Prophylaxis VTE Risk Assessment Done? Y/N: Yes Risk Level: Moderate Resident Tracking Resident Involvement: Resident Care Provided Care Provided: Adult [facility] Medicine
[2016-12-13] MEDS ORDERED: FLUTICASONE PROPIONATE NA SPR 16 GM BTL NAE PRN (21:30)
[2016-12-13] MEDS: OXYCODONE HCL IR 5 MG TAB (IMMEDIATE RELEASE) PO PRN (22:20)
[2016-12-13] MEDS: RIVAROXABAN TAB 15 MG TAB PO SCH (22:21)
[2016-12-13] MEDS: SODIUM CHLORIDE 0.9% 1000ML 1,000 ML IV SCH (22:22)
[2016-12-13 22:37] VITALS: BP 152/83; PULSE 65; TEMP 36.6; O2SAT 98
[2016-12-13 22:39] VITALS: BP 127/66; PULSE 60; TEMP 37; Ht 180.3 cm; Wt 93.2 kg
[2016-12-14] MEDS: SODIUM CHLORIDE 0.9% 1000ML 1,000 ML IV SCH ×2 (01:13→06:29)
[2016-12-14] MEDS: OXYCODONE HCL IR 5 MG TAB (IMMEDIATE RELEASE) PO PRN ×2 (03:08→07:46)
[2016-12-14 07:26] VITALS: BP 131/68; PULSE 69; TEMP 36.7; O2SAT 98
[2016-12-14] MEDS: RIVAROXABAN TAB 15 MG TAB PO SCH (07:37)
[2016-12-14] MEDS ORDERED: METFORMIN HCL 500 MG TAB PO SCH (08:00)
[2016-12-14] MEDS ORDERED: AMLODIPINE BESYLATE 5 MG TAB PO SCH (09:00)
[2016-12-14] MEDS ORDERED: LOSARTAN POTASSIUM 50 MG TAB PO SCH (09:00)
[2016-12-14] MEDS ORDERED: ASPIRIN 81 MG ECTAB PO SCH (09:00)
[2016-12-14] MEDS ORDERED: CETIRIZINE HCL 10 MG TAB PO SCH (09:00)
[2016-12-14] MEDS ORDERED: XRL15 PO (09:43)
[2016-12-14] MEDS ORDERED: OXYC1TAB3 PO (09:43)
[2016-12-14] MEDS ORDERED: AMOX875T PO (09:43)
--- NOTE | 2016-12-14 09:52 | Discharge Instructions ---
Discharge Instructions Date of Service Dec 14, 2016. Admission Reason for Admission: Pulmonary Embolism Discharge Discharge Diagnosis / Problem: (1) Sinusitis, acute frontal (2) Pulmonary embolism VTE Date & Time Date of VTE Diagnosis: Dec 13, 2016 Time of VTE Diagnosis: 17:20 Discharge Goals Goal(s): Improve function, Diagnostic testing (consider repeat CT chest) Activity Recommendations Activity Limitations: resume your previous activity Lifting Limitations: none Exercise/Sports Limitations: as tolerated May Resume Sexual Activity: when tolerated Shower/Bathe: no limitations Driving or Machine Use: no limitations . Instructions / Follow-Up Instructions / Follow-Up Medications: - XARELTO: take 15mg twice a day for 21 days, if you continue past three weeks then Dr. Noland can write for 20mg daily after that point - AUGMENTIN: take twice a day for 10 days for sinusitis - METFORMIN: hold for today but you can resume tomorrow, holding due to IV contrast for your CT scan - OXYCODONE: take as needed for pain, can get further prescription if you need it Suspected pulmonary emboli: seen in the 3rd level pulmonary arteries, there was some motion artifact so there is some question as to whether you actually have clots. Certainly at high risk with recent orthopedic procedures. My recommendation would be to take Xarelto 15mg twice a day and to discuss with Dr. Noland. You could get repeat CT chest in a week to re-evaluate. Your venous dopplers were negative for DVT. Sinusitis, frontal: prescribed Augmentin twice a day, continue Certirizine and Flonase sprays. No evidence of pneumonia seen on CT chest, could be atypical but doubtful. continue to get rest for the next few days, eat and stay well hydrated FOLLOW UP - please call Dr. Noland's office tomorrow for follow up later this week to discuss findings of hospitalization Medication Instructions: Your condition is typically treated with an anticoagulant. Anticoagulants will thin your blood to help prevent new clots. * You should take her medication exactly as directed. * Never skip a dose. * Never take a double dose. If you miss a dose, take it as soon as you remember. Call your Primary Care doctor if you experience any of the following: * Swelling or Pain in your leg * Sudden, continuous pain deep in a muscle * Pain that worsens when you are active or when you stand still for a long time * Chest Pain * Sudden Shortness of Breath * Rapid or pounding heart beat * Fainting * Dizziness * Cough with blood or bloody sputum * Sweating more than normal * Bruises * Heavy or uncontrolled bleeding * Blood in your urine, stool or vomit * Black or tarry stools Caring for Your Self at Home: * Avoid sitting, standing or lying down for long periods without moving your legs and feet * When traveling by car, stop to get out and move around at least once every 3 hours * On long airplane, train or bus rides, get up and move around when possible * If you can't get up, wiggle your toes and tighten your calves to keep your blood moving Follow Up: It is important for you to keep your follow up appointments with your medical provider. Current Hospital Diet Patient's current hospital diet: Regular Diet Discharge Diet Recommended Diet: Diabetes Type 2 Diet Pending Studies Studies pending at discharge: yes List of pending studies: hypercoagulable work up sent by the emergency room physician, will take a week to come back, Pro should look for results Laboratory Results Hemoglobin A1c Test 09/30/16 15:49 Range/Units Estimated Average Glucose 120 mg/dl Hemoglobin A1c 5.8 H 4.5-5.6 % Medical Emergencies . Who to Call and When: Medical Emergencies: If at any time you feel your situation is an emergency, please call 911 immediately. . Non-Emergent Contact Non-Emergency issues call your: Primary Care Provider Call Non-Emergent contact if: you have a fever, your pain is not controlled, you have any medication questions . . "Provider Documentation" section prepared by Jakob Perez. . VTE Core Measure Inpt VTE Proph given/why not?: Other Anticoagulation (Xarelto) [place] Drug Monitoring Program Search Results: no issues identified
[2016-12-14 09:56] VITALS: BP 131/68; PULSE 69; TEMP 36.7; O2SAT 98
--- NOTE | 2016-12-14 10:16 | Discharge Summary ---
Discharge Summary Date of Service Dec 14, 2016. Discharge Summary Admission Date: Dec 13, 2016 at 20:24 Discharge Date: Dec 14, 2016 Discharge Disposition: Home Principal Diagnosis: Suspected bilateral PE Problems/Secondary Diagnoses: Acute frontal sinusitis Dehydration Procedures: none Consultations: none Medication Reconciliation New Medications: Amoxicillin & Pot Clavulanate (Augmentin 875-125 mg) 1 Tab Tab 875 MG PO BID for 10 Days, #20 TAB Rivaroxaban (Xarelto) 15 Mg Tab 15 MG PO BID for 21 Days, #42 TABS 0 Refills Changed Medications: Oxycodone Ir (Roxicodone Ir) 5 Mg Tab 5 MG PO Q4H PRN for Severe Pain, #4 TAB 0 Refills (Changed from: 5-10 MG; Refills: ) Continued Medications: Acetaminophen (Tylenol) 500 Mg Tab 1000 MG PO Q8 PRN for Pain or Fever, TAB Amlodipine (Norvasc) 5 Mg Tab 5 MG PO QAM, TAB Ascorbic Acid (Vitamin C) 500 Mg Tab 500 MG PO BID Aspirin (Aspirin Ec) 81 Mg Tab 81 MG PO DAILY Cetirizine (Zyrtec) 10 Mg Tab 10 MG PO QAM, TAB Cyanocobalamin (Vitamin B-12) 100 Mcg Tab 100 MCG PO BID, TAB Ferrous Sulfate (Iron) 325 Mg Tab 325 MG PO BID Fluticasone Propionate (Nasal) (Flonase Allergy Relief) 50 Mcg/Act Spr 2 SPRAY JULIO UD PRN for PRN Glipizide (Glipizide) 5 Mg Tab 5 MG PO BID Losartan Potassium (Cozaar) 100 Mg Tab 100 MG PO QAM, TAB Metformin HCl (Metformin HCl) 500 Mg Tab 1000 MG PO BID Multivitamin (Multivitamin) Tab 1 TAB PO QAM, TAB Ranitidine Hcl (Zantac) 300 Mg Tab 300 MG PO HS, TAB Simvastatin (Simvastatin) 20 Mg Tab 40 MG PO HS Discharge Exam Patient feels slightly better since admission. Reviewed in detail his recent issues, including sinus pain, nasal congestion, some chest pain and shortness of breath. He was treated with a Z-hayden last week and felt well for a few days but then sinus symptoms returned. Has bad coughing spells once an hour that sometimes bring him to the point of feeling like he will vomit. Has been eating and drinking well, but has felt like he was forcing himself, decreased appetite. Ambulating a lot, as much as 15k steps a day with recent knee and hip replacements. He said he took aspirin 81mg BID for 6 weeks for DVT prophylaxis as ordered. Reviewed imaging results, certainly no large PE seen and question as to whether the changes seen in 3rd level arteries in both lower lobes are true PE. No signs of DVT in both lower extremities. Discussed treating with Xarelto and then repeating imaging in 1-2 weeks and he agreed with this plan. Discussed using Augmentin for sinuses and he agreed, said he tolerates this. Review of Systems: Constitutional: + chills, + sweats, + weakness, + fatigue, No fever, No weight loss Eyes: No worsening of vision, No eye pain, No redness, No discharge, No diplopia, No problem reported ENT: + nasal symptoms, No hearing loss, No unusual epistaxis, No sore throat , No tinnitus, No dental problems, No trouble swallowing Respiratory: + cough, + sputum, + dyspnea on exertion, No wheezing, No shortness of breath, No dyspnea at rest, No hemoptysis Cardiovascular: + chest pain, No orthopnea, No PND, No edema, No claudication, No palpitations, No problem reported Abdomen: + nausea (after coughing spells), No pain, No vomiting, No diarrhea , No constipation, No GI bleeding, No problem reported Musculoskeletal: No joint pain, No muscle pain, No swelling, No calf pain, No problem reported Genitourinary - Male: No hematuria, No dysuria, No urinary frequency, No urinary urgency Neurologic: No memory loss, No paralysis, No weakness, No numbness/tingling , No vertigo, No balance problems, No problem reported Psychiatric: + anxiety, + insomnia, No depression symptoms, No anhedonism, No substance abuse, No problem reported Endocrine: No fatigue, No excessive thirst, No excessive urination, No problem reported Hematologic / Lymphatic: No abnormal bleeding/bruising, No clotting problems , No swollen lymph nodes, No night sweats, No problem reported Integumentary: No rash, No itch, No new/changing skin lesions, No color change, No bleeding, No problem reported Physical Exam: General Appearance: WD/WN, no apparent distress Eyes: normal inspection, EOMI, sclerae normal ENT: hearing grossly normal, pharynx normal, + nasal drainage, + pertinent finding (frontal sinuses tender to palpation) Neck: supple, no adenopathy, no JVD, trachea midline Respiratory/Chest: chest non-tender, lungs clear, normal breath sounds, no respiratory distress, no accessory muscle use Cardiovascular: regular rate, rhythm, no edema, no gallop, no JVD, no murmur , normal peripheral pulses Abdomen / GI: normal bowel sounds, non tender, soft, no organomegaly Extremities: normal inspection, no calf tenderness, normal capillary refill , no pedal edema, normal range of motion, pelvis stable Neurologic/Psychiatric: 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 Pulmonary embolism: per report, 3rd level arteries in both lower lobes, however , there was motion artifact so not definitive - no hypoxia, HR and RR normal, no chest pain today - D dimer high as would be expected with recent surgeries - no DVT on bilateral dopplers - hypercoagulable work up sent by the ED physician, PCP will need to follow up at this point, he is breathing well, no pain, tolerated Xarelto certainly at high risk with two recent orthopedic surgeries in the past few months he has been active and complied with Aspirin BID, but it was only 81mg, not 325mg which is the recommended dose will recommend that we treat the potential bilateral PE with Xarelto 15mg BID x 21 days should follow up with Dr. Noland later this week, can consider repeat CT chest in 1 -2 weeks or a V/Q scan another option is to just complete the 3 months of treatment since certainly this would be considered provoked VTE with recent orthopedic surgery would need to be prescribed Xarelto 20mg daily after the three weeks is finished Acute sinusitis: did not resolve with Zithromax, has frontal sinus tenderness and purulent drainage treat with Augmentin BID x 10 days follow up with PCP Hypertension - Continue home Losartan Type 2 DM - hold Metformin today with CT contrast, can resume tomorrow Fatigue/ Dry mouth - IV fluids overnight Hyperlipidemia - Will continue home statin VTE: Xarelto CODE STATUS: Full Dispo: Med/Surg Total Time Spent: Greater than 30 minutes This includes examination of the patient, discharge planning, medication reconciliation, and communication with other providers. Discharge Instructions Please refer to the electronic Patient Visit Report (Discharge Instructions) for additional information. Follow-Up Dr. Noland in one week Additional Copies To David Noland M.D.
[2016-12-14] MEDS ORDERED: SIMVASTATIN 40 MG TAB PO SCH (21:00)
[2016-12-14] MEDS ORDERED: RANITIDINE HCL 150 MG TAB PO SCH (21:00)
[2016-12-18 21:35] LABS: ANTITHROMBINIII ACTIVITY** 101 % activity (80-120); B2 GLYCOPROTEIN IGA <9 SAU (<=20); B2 GLYCOPROTEIN IGG <9 SGU (<=20); B2 GLYCOPROTEIN IGM <9 SMU (<=20); LUPUS ANTICOAGULANT** TC36573X Negative (Negative); PROTEIN C ACTIVITY** TC 1777X 121 % (70-180); PROTEIN S ACT(FUNCT)**1779X 100 % (70-150)
[2016-12-30] MEDS ORDERED: CYAN100T PO (08:22)
[2016-12-30] MEDS ORDERED: GLC500 PO (08:22)
[2016-12-30] MEDS ORDERED: LOSA1TAB38 PO (08:22)
[2016-12-30] MEDS ORDERED: MULT-506 PO (08:22)
[2016-12-30] MEDS ORDERED: FERR1TAB23 PO (08:22)
[2016-12-30] MEDS ORDERED: AMLO-110 PO (08:22)
[2016-12-30] MEDS ORDERED: RANI300T2 PO (08:22)
[2016-12-30] MEDS ORDERED: FLUT0.15 NAE (08:22)
[2016-12-30] MEDS ORDERED: ASCA500 PO (08:22)
[2016-12-30] MEDS ORDERED: CETI10TA84 PO (08:22)
[2016-12-30] MEDS ORDERED: GLC5 PO (08:22)
[2016-12-30] MEDS ORDERED: ASPI81TA28 PO (16:52)
[2016-12-30] MEDS ORDERED: ACET-1256 PO (16:54)
== END 2016-12-14 10:45 | disposition home or self-care (01) ==
LOC: C.EDB 16:09 → C.MS2W 20:24 → ENRESERV 20:36
PROVIDERS: ADMIT Hospitalist; ATTEND Hospitalist
DX: I26.99 Other pulmonary embolism without acute cor pulmonale (principal); J01.10 Acute frontal sinusitis, unspecified; E86.0 Dehydration; I10 Essential (primary) hypertension; E78.5 Hyperlipidemia, unspecified; E11.9 Type 2 diabetes mellitus without complications; F20.9 Schizophrenia, unspecified; Z96.649 Presence of unspecified artificial hip joint; Z96.659 Presence of unspecified artificial knee joint; Z79.82 Long term (current) use of aspirin; Z79.84 Long term (current) use of oral hypoglycemic drugs; Z79.01 Long term (current) use of anticoagulants; Z79.899 Other long term (current) drug therapy

== ENCOUNTER 2016-12-30 17:27 | Emergency (ER) | payer OTHER ==
[~2016-12-30] VITALS: Ht 180.3 cm; Wt 93.6 kg
[~2016-12-30 17:27] MED LIST changes: -ACET-1138 PO; +ACET-1256 PO; +AMLO-110 PO; +ASCA500 PO; -ASPEC81 PO; +ASPI81TA28 PO; +CETI10TA84 PO; +CYAN100T PO; +FERR1TAB23 PO; +FLUT0.15 NAE; +GLC5 PO; +GLC500 PO; +LOSA1TAB38 PO; +MULT-506 PO; -ONDA8TAB6 PO; +OXYC1TAB3 PO; -OXYSR10 PO; +RANI300T2 PO; -RXC5 PO; +XRL15 PO
[2016-12-30 17:33] VITALS: TEMP 36.7; Ht 180.3 cm; Wt 93.6 kg
[2016-12-30] MEDS ORDERED: RIVA1.5T PO (18:07)
[2016-12-30] MEDS ORDERED: SIMV40TA4 PO (18:07)
[2016-12-30 18:22] LABS: BASO % 0.3 %; BASO ABS # 0.02 K/uL (0-0.2); COMPLETE YES; EOS % 1.4 %; HEMATOCRIT 35.1 % (42-52); IG% 0.1 %; LYMPH % 29.6 %; LYMPH ABS # 2.09 K/uL (1.2-3.4); MEAN CELL VOLUME 98.6 fL (80-100); MEAN CORPUSCULAR HEMOGLOBIN 33.4 pg (25-34); MEAN CORPUSCULAR HGB CONC 33.9 g/dl (32-36); MEAN PLATELET VOLUME 9.4 fL (7.4-10.4); MONO % 8.9 %; NEUT % 59.7 %; PLATELET COUNT 349 K/uL (130-400); RED BLOOD COUNT 3.56 M/uL (4.7-6.1); WHITE BLOOD COUNT 7.07 K/uL (4.8-10.8)
[2016-12-30 18:39] LABS: BUN/CREATININE RATIO 21.8 (10-20); CREATININE 0.87 mg/dl (0.60-1.40); POTASSIUM 3.7 mmol/L (3.5-5.1)
[2016-12-30 18:50] LABS: ALB/GLOB RATIO 1.2 (0.9-2); CKMB/CK RATIO 1.4 (0-3.0); THYROID STIMULATING HORMONE 1.11 uIu/ml (0.300-4.500)
[2016-12-30 19:06] VITALS: BP 188/86; PULSE 76; O2SAT 98
[2016-12-30] MEDS ORDERED: MAGNESIUM OXIDE 400 MG TAB PO ONE (19:30)
--- NOTE | 2016-12-30 20:39 | EMERGENCY ROOM VISIT NOTE ---
History First contact with patient: 17:38 Chief Complaint: WEAKNESS Stated Complaint: LEFT EAR POPPING, DRAINED, LOW ENERGY History of Present Illness The patient is a 56 year old male who presents to the Emergency Room with complaints of malaise and fatigue worsening over the past one day. The patient has a recent history of right hip and right knee replacement within the past 4 or 5 months. The patient has been undergoing physical therapy, and states that he has been very active in physical therapy the last few days. He did develop a PE postoperatively and is on Xarelto. He is without chest pain or shortness of breath. He is a isz-[id number] diabetic. Additionally the patient complains of left ear pain and indigestion for the past few days. He has intermittent and ongoing discomfort in his right hip and right knee that worsens with physical therapy. The patient has been on chronic pain medication for the past 2 or 3 months, and states that his prescription ran out 2 days ago. He has not been able to sleep well the past 2 days because he has not had his medication. He rates his overall discomfort a 9/10. Review of Systems More than 10 systems were reviewed and otherwise negative with the exception of history of present illness. 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 Social History Smoking Status: Never Smoker Alcohol Use: other Drug Use: other (Bath Salts) Marital Status: single Housing Status: lives alone Occupation Status: disabled Current/Historical Medications Scheduled Amlodipine (Norvasc), 5 MG PO QAM Ascorbic Acid (Vitamin C), 500 MG PO BID Aspirin (Aspirin Ec), 81 MG PO DAILY Cetirizine (Zyrtec), 10 MG PO QAM Cyanocobalamin (Vitamin B-12), 100 MCG PO BID Ferrous Sulfate (Iron), 325 MG PO BID Glipizide (Glipizide), 5 MG PO BID Losartan Potassium (Cozaar), 100 MG PO QAM Metformin HCl (Metformin HCl), 1,000 MG PO BID Multivitamin (Multivitamin), 1 TAB PO QAM Ranitidine Hcl (Zantac), 300 MG PO HS Rivaroxaban (Xarelto), 15 MG PO BID Simvastatin (Zocor), 40 MG PO HS Scheduled PRN Acetaminophen (Tylenol), 1,000 MG PO Q8 PRN for Pain or Fever Fluticasone Propionate (Nasal) (Flonase Allergy Relief), 2 SPRAYS JULIO UD PRN for Allergy Symptoms Physical Exam Vital Signs Date Time Temp Pulse Resp B/P (MAP) Pulse Ox O2 Delivery O2 Flow Rate FiO2 12/30/16 19:06 76 20 188/86 98 Room Air 12/30/16 17:33 36.7 77 16 180/90 96 Room Air Physical Exam VITALS: Vitals are noted on the nurse's note and reviewed by myself. Vital signs with elevated blood pressure GENERAL: Well-developed, well-nourished, white male, who is in no acute distress and resting comfortably. Patient is cooperative with the examination. EARS: External ear normal. External auditory canals clear, tympanic membranes pearly myers without erythema or effusion bilaterally. EYES: Pupils equal round and reactive to light and accommodation. Conjunctivae without injection, sclerae without icterus. Extraocular movements intact. NOSE: Patent, turbinates without inflammation or discharge. MOUTH: Mucous membranes moist. Tonsils are not enlarged. Pharynx without erythema, blood, or exudate. Uvula midline. Airway patent. NECK: Supple without nuchal rigidity. No lymphadenopathy. No thyromegaly. Cervical spine is nontender. HEART: Regular rate and rhythm without murmurs gallops or rubs. LUNGS: Clear to auscultation bilaterally without wheezes, rales or rhonchi. No retractions or accessory muscle use. ABDOMEN: Positive normal bowel sounds x 4. Soft, nontender, without masses or organomegaly. No guarding or rebound tenderness. MUSCULOSKELETAL: No muscle atrophy, erythema, or edema noted. Full range of motion without joint tenderness in all extremities. Negative Homans sign. No evidence of infection. Medical Decision & Procedures Laboratory Results 12/30/16 18:05 Red Blood Count 3.56, Mean Corpuscular Volume 98.6, Mean Corpuscular Hemoglobin 33.4, Mean Corpuscular Hemoglobin Concent 33.9, Mean Platelet Volume 9.4, Neutrophils (%) (Auto) 59.7, Lymphocytes (%) (Auto) 29.6, Monocytes (%) (Auto) 8.9, Eosinophils (%) (Auto) 1.4, Basophils (%) (Auto) 0.3, Neutrophils # (Auto) 4.22, Lymphocytes # (Auto) 2.09, Monocytes # (Auto) 0.63, Eosinophils # (Auto) 0.10, Basophils # (Auto) 0.02 12/30/16 18:05 Test 12/30/16 18:05 12/30/16 18:13 12/30/16 19:42 White Blood Count 7.07 K/uL (4.8-10.8) Red Blood Count 3.56 M/uL (4.7-6.1) Hemoglobin 11.9 g/dL (14.0-18.0) Hematocrit 35.1 % (42-52) Mean Corpuscular Volume 98.6 fL (80-100) Mean Corpuscular Hemoglobin 33.4 pg (25-34) Mean Corpuscular Hemoglobin Concent 33.9 g/dl (32-36) Platelet Count 349 K/uL (130-400) Mean Platelet Volume 9.4 fL (7.4-10.4) Neutrophils (%) (Auto) 59.7 % Lymphocytes (%) (Auto) 29.6 % Monocytes (%) (Auto) 8.9 % Eosinophils (%) (Auto) 1.4 % Basophils (%) (Auto) 0.3 % Neutrophils # (Auto) 4.22 K/uL (1.4-6.5) Lymphocytes # (Auto) 2.09 K/uL (1.2-3.4) Monocytes # (Auto) 0.63 K/uL (0.11-0.59) Eosinophils # (Auto) 0.10 K/uL (0-0.5) Basophils # (Auto) 0.02 K/uL (0-0.2) RDW Standard Deviation 47.0 fL (36.4-46.3) RDW Coefficient of Variation 13.0 % (11.5-14.5) Immature Granulocyte % (Auto) 0.1 % Immature Granulocyte # (Auto) 0.01 K/uL (0.00-0.02) Anion Gap 6.0 mmol/L (3-11) Est Creatinine Clear Calc Drug Dose 108.1 ml/min Estimated GFR () 110.3 Estimated GFR (Non- 95.1 BUN/Creatinine Ratio 21.8 (10-20) Calcium Level 9.0 mg/dl (8.5-10.1) Total Bilirubin 0.3 mg/dl (0.2-1) Aspartate Amino Transf (AST/SGOT) 19 U/L (15-37) Alanine Aminotransferase (ALT/SGPT) 27 U/L (12-78) Alkaline Phosphatase 40 U/L (45-117) Total Creatine Kinase 101 U/L (39-308) Creatine Kinase MB 1.4 ng/ml (0.5-3.6) Creatine Kinase MB Ratio 1.4 (0-3.0) Total Protein 7.1 gm/dl (6.4-8.2) Albumin 3.8 gm/dl (3.4-5.0) Globulin 3.3 gm/dl (2.5-4.0) Albumin/Globulin Ratio 1.2 (0.9-2) Lipase 189 U/L (73-393) Thyroid Stimulating Hormone (TSH) 1.110 uIu/ml (0.300-4.500) Bedside Troponin I < 0.030 ng/ml (0-0.045) Bedside Glucose 106 mg/dl (70-99) Medications Administered Medications (Trade) Dose Ordered Sig/Adan Route Start Time Stop Time Status Last Admin Dose Admin Magnesium Oxide (Mag-Ox Tab) 400 mg NOW ONCE PO 12/30/16 19:30 12/30/16 19:31 DC 12/30/16 19:49 400 MG ED Course Physical exam and history were performed. Nursing notes, EMR, and Medication List were personally reviewed. Patient appears to have vague weakness and fatigue for the past one day. He also has several other unrelated complaints. His abdomen certainly is nontender and he does not have otitis on examination. Initially the patient reports that he is out of his narcotic pain medication. IV access was established and labs were obtained. EKG was normal sinus rhythm without acute ST elevation. The patient's blood work is as above and was reviewed. He does not have a significantly elevated white blood cell count, gross anemia, bandemia, or significant electrolyte imbalance. Troponin 1 is negative. TSH is euthyroid state. The patient did have a low blood sugar at 63, and this certainly could be contributing to his symptoms. On repeat questioning, the patient states that he ate just prior to arrival, and his sugar certainly could be running low from his glipizide. He was provided food and drink here in the department, and repeat bedside glucose was greater than 100. The patient was also given magnesium by mouth. I did discuss the case with my attending physician, Dr. Stearns. Overall we feel the patient is stable for discharge home with close follow-up by his primary care physician. The patient does have a past history of bath salt abuse and alcoholism. We do not feel comfortable providing him narcotic medication, and will defer this back to his primary care physician and orthopedic providers, as they have prescribed greater than 400 pills over the past 2 months for the patient. The patient was otherwise invited back to the ER with any new, worsening, or concerning symptoms. The chart was completed utilizing [email or web address] Speech Voice Recognition Software. Grammatical errors, random word insertions, pronoun errors, and incomplete sentences are an occasional consequence of this system due to software limitations, ambient noise, and hardware issues. Any formal questions or concerns about the content, text, or information contained within the body of this dictation should be directly addressed to the provider for clarification. . Medical Decision Differential diagnosis: Etiologies such as metabolic, infection, hypo/hyperglycemia, electrolyte abnormalities, cardiac sources, intracerebral event, toxicologic, neurologic, as well as others were entertained. [place] Drug Monitoring Program Search Results: patient reviewed within database (greater than 400 pills provided over the past 2 months by orthopedics and PCP offices) Medication Reconcilliation Current Medication List: was personally reviewed by la Blood Pressure Screening Patient's blood pressure: Elevated blood pressure Blood pressure disposition: Referred to PCP Impression Primary Impression: Malaise and fatigue Additional Impression: Low blood sugar in diabetes Departure Information Dispostion Home / Self-Care Condition GOOD Forms HOME CARE DOCUMENTATION FORM, IMPORTANT VISIT INFORMATION Patient Instructions My [facility] Additional Instructions You were seen and evaluated today on an emergency basis only. This is not a substitute for, or an effort to provide, complete comprehensive medical care. It is not possible to recognize and treat all injuries or illnesses in a single emergency department visit. For this reason it is recommended that you followup with your primary care physician tomorrow for ongoing care and evaluation. Continue to monitor your glucose at home Drink plenty of fluids and remain well hydrated You are welcome to return to the emergency department anytime with new, worsening, or concerning symptoms. Problem Qualifiers
== END 2016-12-30 20:30 | disposition home or self-care (01) ==
LOC: C.EDB 17:29
DX: E11.649 Type 2 diabetes mellitus with hypoglycemia without coma (principal); Z98.890 Other specified postprocedural states; Z96.641 Presence of right artificial hip joint; Z96.651 Presence of right artificial knee joint; Z86.711 Personal history of pulmonary embolism; Z79.01 Long term (current) use of anticoagulants; Z79.82 Long term (current) use of aspirin; Z79.899 Other long term (current) drug therapy; E78.5 Hyperlipidemia, unspecified; I10 Essential (primary) hypertension; F19.10 Other psychoactive substance abuse, uncomplicated; F10.20 Alcohol dependence, uncomplicated

== ENCOUNTER → 2017-01-01 | Outpatient (CLI) | payer OTHER ==
[~2017-01-01] MED LIST changes: +OPTIRAY 320 IV PRN; -OXYC1TAB3 PO; +RIVA1.5T PO; -SIMV-151 PO; +SIMV40TA4 PO; -XRL15 PO
--- NOTE | 2017-01-01 10:40 | DIAGNOSTIC IMAGING REPORT ---
(CHEST FOR PE) ANGIO WITH CLINICAL HISTORY: 56 years-old Male presenting with chest pain and shortness of breath. TECHNIQUE: Multidetector CT angiography of the chest was performed after administration of intravenous contrast. 3-D volumetric and maximum intensity projection (MIP) images were subsequently reconstructed for review. IV contrast: 87 mL of Optiray 320. A dose lowering technique was used consistent with the principles of ALARA (as low as reasonably achievable). COMPARISON: 12/13/2016. CT DOSE (mGy.cm): The estimated cumulative dose is 469.40 mGy.cm. FINDINGS: Institutional Asset Manager topogram: Unremarkable. Pulmonary vasculature: The study is adequate for assessment of the pulmonary vascular tree. No filling defect within the pulmonary arteries to suggest embolus. Main pulmonary artery not enlarged. No flattening of the interventricular septum. No intracardiac filling defect. Remaining chest: On soft tissue windows, bilateral gynecomastia noted. No axillary, supraclavicular, hilar, or mediastinal lymphadenopathy. Minimal atherosclerosis of the aortic arch. Top normal heart size. Mild coronary artery calcification. No pericardial or pleural effusion. Borderline hepatic steatosis. Hypodensity in segment IVb along the gallbladder fossa, indeterminate but possibly hepatic cyst or hamartoma. On lung windows, minimal bandlike opacity at the right lung base likely atelectasis or scarring. Mosaic attenuation at the lung bases may relate to phase of respiration or small airways disease. Airways patent. On bone windows, degenerative changes of the thoracic spine. Deformity of the posterior right 11th rib consistent with old rib fracture. Similar deformity of several lateral left ribs. IMPRESSION: 1. No evidence of pulmonary embolus. No convincing evidence of acute intrathoracic pathology. Electronically signed by: Robles Lockhart M.D. 01/01/2017 10:38 AM Dictated Date/Time: 01/01/2017 10:31 AM
== END | disposition home or self-care (01) ==
LOC: C.CTS 10:12
PROVIDERS: ATTEND Physician Assistant
DX: I26.99 Other pulmonary embolism without acute cor pulmonale (principal); R06.02 Shortness of breath

== ENCOUNTER → 2017-01-15 | Outpatient (CLI) | payer OTHER ==
[~2017-01-15] MED LIST changes: -OPTIRAY 320 IV PRN
[2017-01-15 09:41] LABS: BASO % 0.2 %; BASO ABS # 0.01 K/uL (0-0.2); COMPLETE YES; EOS % 1.6 %; HEMATOCRIT 38.2 % (42-52); IG% 0.2 %; LYMPH % 29.2 %; LYMPH ABS # 1.86 K/uL (1.2-3.4); MEAN CELL VOLUME 98.7 fL (80-100); MEAN CORPUSCULAR HGB CONC 32.5 g/dl (32-36); MONO % 9.3 %; NEUT % 59.5 %; PLATELET COUNT 310 K/uL (130-400); RED BLOOD COUNT 3.87 M/uL (4.7-6.1); WHITE BLOOD COUNT 6.36 K/uL (4.8-10.8)
[2017-01-15 09:58] LABS: BLOOD UREA NITROGEN 18 mg/dl (7-18); BUN/CREATININE RATIO 24.2 (10-20); CARBON DIOXIDE 26 mmol/L (21-32); CHLORIDE 107 mmol/L (98-107); CREATININE 0.74 mg/dl (0.60-1.40); GLUCOSE 91 mg/dl (70-99); POTASSIUM 3.9 mmol/L (3.5-5.1); SODIUM 138 mmol/L (136-145)
[2017-01-15 10:03] LABS: CHOLESTEROL 132 mg/dl (0-200); CHOLESTEROL/HDL RATIO 2.9; FERRITIN 25.3 ng/ml (8.0-388.0); HDL CHOLESTEROL 46 mg/dl; LDL CHOLESTEROL CALCULATED 55 mg/dl; TRIGLYCERIDES 156 mg/dl (0-150); VERY LOW DENSITY LIPOPROT CALC 31 mg/dl
[2017-01-15 10:11] LABS: ESTIMATED AVERAGE GLUCOSE 120 mg/dl; HA1C FLAG Normal (Normal)
== END | disposition home or self-care (01) ==
LOC: C.LAB1850 07:39
PROVIDERS: ATTEND Internal Medicine
DX: E11.9 Type 2 diabetes mellitus without complications (principal); E78.5 Hyperlipidemia, unspecified; D64.9 Anemia, unspecified

== ENCOUNTER → 2017-06-22 | Outpatient (CLI) | payer OTHER ==
[2017-06-22 09:54] LABS: HEMOGLOBIN 12.9 g/dL (14.0-18.0); MEAN CELL VOLUME 100.8 fL (80-100); MEAN CORPUSCULAR HEMOGLOBIN 35.1 pg (25-34); MEAN CORPUSCULAR HGB CONC 34.9 g/dl (32-36); MEAN PLATELET VOLUME 10.4 fL (7.4-10.4); PLATELET COUNT 299 K/uL (130-400); RED CELL DISTRIBUTION WIDTH CV 12.9 % (11.5-14.5); RED CELL DISTRIBUTION WIDTH SD 47.1 fL (36.4-46.3); WHITE BLOOD COUNT 6.91 K/uL (4.8-10.8)
[2017-06-22 10:05] LABS: BLOOD UREA NITROGEN 15 mg/dl (7-18); CALCIUM 8.8 mg/dl (8.5-10.1); CARBON DIOXIDE 29 mmol/L (21-32); CREATININE 0.92 mg/dl (0.60-1.40); GLUCOSE 113 mg/dl (70-99); SODIUM 139 mmol/L (136-145)
[2017-06-22 10:08] LABS: CHOLESTEROL 96 mg/dl (0-200); LDL CHOLESTEROL CALCULATED 25 mg/dl
[2017-06-22 10:18] LABS: HEMOGLOBIN A1C 5.7 % (4.5-5.6)
== END | disposition home or self-care (01) ==
LOC: C.LAB1850 07:26
PROVIDERS: ATTEND Internal Medicine
DX: E11.9 Type 2 diabetes mellitus without complications (principal); E78.5 Hyperlipidemia, unspecified; D64.9 Anemia, unspecified